=== PATIENT | female | born 1945 | race African-American/Black ===

== ENCOUNTER 2016-11-28 15:30 | Outpatient (CLI) | payer MEDICARE, OTHER ==
[~2016-11-28 15:30] MED LIST: ALBU2.5V11 INH; ALPR-322 PO; ASPI81TA2 PO; CICL6.1H4 NAS; DOCU-25 PO; FLUT10SP INH; HYDR-551 PO; LOSA50TA21 PO; MOME13HF2 HHN; MONT10TA22 PO; MORP15TA71 PO; SENN8.6T6 PO; SERT50TA12 PO; SIMV10TA6 PO
== END 2016-11-28 23:59 | disposition home health service (06) ==
LOC: WOU 15:30
PROVIDERS: ATTEND Surgery
DX: L89.313 Pressure ulcer of right buttock, stage 3 (principal); G82.20 Paraplegia, unspecified; I10 Essential (primary) hypertension; E11.9 Type 2 diabetes mellitus without complications; Z79.899 Other long term (current) drug therapy
CPT/HCPCS: 11042; A6402

== ENCOUNTER 2016-12-05 15:01 | Outpatient (CLI) | payer MEDICARE, OTHER | END 2016-12-05 23:59 | disposition home health service (06) | LOC: WOU 15:01 | PROVIDERS: ATTEND Surgery | DX: L89.313 Pressure ulcer of right buttock, stage 3 (principal); G82.20 Paraplegia, unspecified; I10 Essential (primary) hypertension; E11.9 Type 2 diabetes mellitus without complications; Z79.899 Other long term (current) drug therapy | CPT/HCPCS: 11042; A6402 ==

== ENCOUNTER 2016-12-19 13:40 | Outpatient (CLI) | payer MEDICARE, OTHER | END 2016-12-19 23:59 | disposition home health service (06) | LOC: WOU 13:40 | PROVIDERS: ATTEND Surgery | DX: L89.313 Pressure ulcer of right buttock, stage 3 (principal); G82.20 Paraplegia, unspecified; I10 Essential (primary) hypertension; E11.9 Type 2 diabetes mellitus without complications | CPT/HCPCS: G0463 ==

== ENCOUNTER 2017-01-02 13:50 | Outpatient (CLI) | payer MEDICARE, OTHER | END 2017-01-02 23:59 | disposition home health service (06) | LOC: WOU 13:50 | PROVIDERS: ATTEND Surgery | DX: L89.303 Pressure ulcer of unspecified buttock, stage 3 (principal); G82.20 Paraplegia, unspecified; E11.9 Type 2 diabetes mellitus without complications; I10 Essential (primary) hypertension | CPT/HCPCS: G0463 ==

== ENCOUNTER 2018-02-27 14:30 | Inpatient (IN) | payer MEDICARE, OTHER ==
[~2018-02-27] VITALS: Ht 167.6 cm; Wt 75.7 kg
[~2018-02-27 14:30] MED LIST changes: +ASPI-1169 PO; -ASPI81TA2 PO; +CICL6.1H2 NAS; -CICL6.1H4 NAS; +DOCU-141 PO; -DOCU-25 PO; +MORP15TA60 PO; -MORP15TA71 PO; +SENN-167 PO; -SENN8.6T6 PO
--- NOTE | 2018-02-27 14:35 | NUR ---
BIBRA 837 C/O GENERALIZED WEAKNESS, DIARRHEA, VOMITING. PATIENT IS AWAKE AND ALERT, APEARS IN NO DISTRESS. SKIN IS WARM TO TOUCH AND NON DIAPHORETIC, PT IS AFEBRILE. PATIENT ON SP BLADDER SX 3 DAYS AGO. VSS. WILL CONT TO MONITOR
[2018-02-27] MEDS ORDERED: ONDANSETRON HCL/PF 4 MG/2 ML VIAL ONE (14:41)
[2018-02-27 14:50] LABS: BASOPHILS # (AUTO) 0.2 /CMM (0.0-0.2); BASOPHILS % (AUTO) 2.6 % (0.0-2.0); EOSINOPHILS % (AUTO) 0.2 % (0.0-6.0); HEMATOCRIT 41 % (33-45); HEMOGLOBIN 13.8 g/dL (11.5-14.8); LYMPHOCYTES # (AUTO) 1.5 /CMM (0.8-4.8); LYMPHOCYTES % (AUTO) 19.8 % (20.0-44.0); MEAN CORPUSCULAR HEMOGLOBIN 28 PG (26.0-33.0); MEAN CORPUSCULAR HGB CONC 34 g/dl (31.0-36.0); MEAN CORPUSCULAR VOLUME 83 fL (82-100); MONOCYTES # (AUTO) 0.6 /CMM (0.1-1.30); MONOCYTES % (AUTO) 8.2 % (2.0-12.0); NEUTROPHILS # (AUTO) 5.3 /CMM (1.8-8.9); NEUTROPHILS % (AUTO) 69.2 % (43.0-81.0); PLATELET COUNT (AUTO) 345 /CMM (150-450); RDW COEFFICIENT OF VARIATION 14.9 (11.5-15.0); RED BLOOD CELL COUNT(AUTO) 4.94 MIL/uL (4.0-5.2); WHITE BLOOD COUNT (AUTO) 7.6 K/uL (4.3-11.0)
[2018-02-27] MEDS ORDERED: AZEL137S7 NS (14:51)
[2018-02-27] MEDS ORDERED: METF500T6 PO (14:51)
[2018-02-27] MEDS ORDERED: PANT40TA4 PO (14:51)
[2018-02-27] MEDS ORDERED: BIOT5000 PO (14:51)
[2018-02-27] MEDS ORDERED: MORP15TA PO (14:51)
[2018-02-27] MEDS ORDERED: NITR0.4T48 SL (14:51)
[2018-02-27] MEDS ORDERED: IPRA42SP BNOSTRILS (14:51)
[2018-02-27] MEDS ORDERED: FLUT1BLS IH (14:51)
[2018-02-27] MEDS ORDERED: ALBU8.5H8 IH (14:51)
[2018-02-27] MEDS ORDERED: FLUT16SP BNOSTRILS (14:55)
[2018-02-27] MEDS ORDERED: METR60CR TP (14:59)
[2018-02-27] MEDS ORDERED: SIMV10TA6 PO (14:59)
[2018-02-27] MEDS ORDERED: IV NS 0.9% 1,000 ML BAG IV ONE (15:00)
[2018-02-27] MEDS ORDERED: ONDANSETRON HCL/PF 4 MG/2 ML VIAL IVP ONE (15:00)
[2018-02-27 15:04] LABS: INR 0.98 (0.85-1.15)
[2018-02-27 15:07] LABS: ALANINE AMINOTRANSFERASE 25 U/L (12-78); ALBUMIN 4.1 g/dL (3.4-5.0); ALKALINE PHOSPHATASE 104 U/L (46-116); ASPARTATE AMINOTRANSFERASE 88 U/L (15-37); LIPASE 363 U/L (73-393); TOTAL PROTEIN, SERUM 8.5 g/dL (6.4-8.2)
[2018-02-27 15:08] LABS: SERUM AMMONIA 19 umol/L (11-32)
[2018-02-27 15:10] LABS: TROPONIN I < 0.017 ng/mL (0.00-0.056)
[2018-02-27 15:16] LABS: BILIRUBIN,DIRECT 0.1 mg/dL (0.0-0.2)
[2018-02-27 15:17] LABS: BILIRUBIN,TOTAL 0.6 mg/dL (0.2-1.0)
[2018-02-27 15:26] LABS: CALCIUM, SERUM 10.1 mg/dL (8.5-10.1); POTASSIUM 3.5 mmol/L (3.5-5.1)
[2018-02-27 15:31] LABS: APPEARANCE,URINE Clear (CLEAR); BILIRUBIN,URINE MODERATE (NEGATIVE); BLOOD, URINE Negative Ery/uL (NEGATIVE); COLOR,URINE Yellow (YELLOW); KETONES,URINE 80 (NEGATIVE); LEUKOCYTE ESTERASE ,URINE Negative (NEGATIVE); NITRITE, URINE Negative (NEGATIVE); PH,URINE 5.5 (5.0-8.0); PROTEIN,URINE Negative (NEGATIVE); UGLUCOSE Negative (NEGATIVE); UROBILINOGEN,URINE 0.2 EU/dL (0.2)
[2018-02-27] MEDS ORDERED: IV NS 0.9% 250 ML IV ONE (15:36)
[2018-02-27] MEDS ORDERED: CT SWABBABLE VALVE TRANS SET 1 EA INFUS.SET MC ONE (15:36)
[2018-02-27] MEDS ORDERED: IOHEXOL-300 100 ML VIAL IV ONE (15:36)
[2018-02-27 15:48] LABS: BACTERIA,URINE Rare /HPF (None Seen); RBC,URINE 0-2 /HPF (0-2); SQUAMOUS EPITHELIAL CELL,UR Few /HPF (None Seen); WBC,URINE 0-2 /HPF (0-3)
--- NOTE | 2018-02-27 17:09 | NUR ---
CALLED , , BRUSH OR BROOM CUTTER FOR , PAGED TO CALL BACK.
--- NOTE | 2018-02-27 17:11 | NUR ---
[facility] PAGED, CASIMIRO HELMS METEOROLOGY INSTRUCTOR
--- NOTE | 2018-02-27 17:28 | NUR ---
TELE 311-2 FOR WEAKNESS, CASIMIRO HELMS ADMITTING
[2018-02-27] MEDS ORDERED: MAGNESIUM HYDROXIDE 30 ML UDC PO PRN (18:00)
[2018-02-27] MEDS ORDERED: NITROGLYCERIN 0.4 MG/TAB BOTTLE SL PRN (18:00)
[2018-02-27] MEDS ORDERED: ACETAMINOPHEN 325 MG TABLET PO PRN (18:00)
[2018-02-27] MEDS ORDERED: Z GUARD REMEDY 2 OZ OINT TP PRN (18:00)
[2018-02-27] MEDS ORDERED: MAG HYDROX/AL HYDROX/SIMETH 30 ML UDC PO PRN (18:00)
--- NOTE | 2018-02-27 18:03 | NUR ---
REPORT GIVEN TO MANDI GOETZ FOR [facility] TELE 311-2
--- NOTE | 2018-02-27 18:04 | NUR ---
[facility] [phone].
--- NOTE | 2018-02-27 18:30 | NUR ---
OIL WELL SERVICE OPERATOR HELPER NOTES RECEIVED PATIENT IN BED RESTING NO SOB OR ACUTE DISTRESS NOTED. WILL CONTINUE TO MONITOR.
--- NOTE | 2018-02-27 19:05 | NUR ---
RN OPENING NOTES RECEIVED REPORT FROM MANDI CALDERON. WILL CONTINUE ADMISSION PROCESS. WILL CONTINUE TO ASSESS. PT COMPLAINS OF N/V/D X3 DAYS SINCE BLADDER SX ON FRIDAY. PT NOTED TO HAVE SURGICAL STITCHES ON SACRUM AND BUTTOCKS, DOCUMENTED AND PHOTOS ADDED TO CHART. PT HAS A LEFT AC #20 INTACT AND PATENT. SAFETY PRECAUTIONS IN PLACE BED IN LOWEST LOCKED POSITION, X2 SIDE RAILS UP, CALL LIGHT WITHIN REACH WILL CONTINUE TO MONITOR.
[2018-02-27] MEDS ORDERED: ALBUTEROL FS 2.5 MG/3 ML VIAL.NEB NEB PRN (19:30)
[2018-02-27 20:00] VITALS: BP 123/63
[2018-02-27] MEDS: ONDANSETRON HCL/PF 4 MG/2 ML VIAL IVP PRN (20:49)
[2018-02-27] MEDS: IV NS 0.9% 1,000 ML IV PRN (20:50)
[2018-02-27] MEDS: HYDROCODONE/APAP 5/325MG 1 EACH TABLET PO PRN (20:53)
[2018-02-28] VITALS: BP 122/59
[2018-02-28] MEDS: HYDROCODONE/APAP 5/325MG 1 EACH TABLET PO PRN ×2 (03:42→23:45)
[2018-02-28 04:00] VITALS: BP 153/64
[2018-02-28] MEDS: ONDANSETRON HCL/PF 4 MG/2 ML VIAL IVP PRN ×3 (05:46→23:44)
--- NOTE | 2018-02-28 06:30 | NUR ---
RN CLOSING NOTES PT RESTING IN BED. PT AWAKE AND ALERT. NO COMPLAINTS OF SOB OR DISTRESS. PT HAS A RIGHT AC #20 IV RUNNING NS @75ML/HR. PT TOLERATING FLUIDS WELL. PT TELE MONITORED AT NSR RATE IN THE 70'S. PT WILL HAVE ULTRASOUND OF ABD TODAY. PT HAS BEEN NPO SINCE MIDNIGHT. ALL PT NEEDS MET OVERNIGHT. SAFETY PRECAUTIONS IN PLACE, BED IN LOWEST LOCKED POSITION, X2 SIDE RAILS UP, CALL LIGHT WITH IN REACH. WILL ENDORSE TO DAY SHIFT NURSE FOR CONTINUITY OF CARE.
[2018-02-28 06:43] LABS: BASOPHILS % (AUTO) 0.8 % (0.0-2.0); EOSINOPHILS % (AUTO) 0.6 % (0.0-6.0); HEMATOCRIT 35 % (33-45); HEMOGLOBIN 11.9 g/dL (11.5-14.8); LYMPHOCYTES # (AUTO) 1.5 /CMM (0.8-4.8); LYMPHOCYTES % (AUTO) 24.9 % (20.0-44.0); MEAN CORPUSCULAR HEMOGLOBIN 28 PG (26.0-33.0); MEAN CORPUSCULAR HGB CONC 34 g/dl (31.0-36.0); MEAN CORPUSCULAR VOLUME 84 fL (82-100); MONOCYTES # (AUTO) 0.6 /CMM (0.1-1.30); MONOCYTES % (AUTO) 9.6 % (2.0-12.0); NEUTROPHILS # (AUTO) 3.9 /CMM (1.8-8.9); NEUTROPHILS % (AUTO) 64.1 % (43.0-81.0); PLATELET COUNT (AUTO) 278 /CMM (150-450); RDW COEFFICIENT OF VARIATION 14.9 (11.5-15.0)
[2018-02-28 07:30] LABS: ALBUMIN 3.3 g/dL (3.4-5.0); BILIRUBIN,TOTAL 0.5 mg/dL (0.2-1.0); CALCIUM, SERUM 8.6 mg/dL (8.5-10.1); CREATININE 0.8 mg/dL (0.6-1.3); MAGNESIUM 1.9 mg/dL (1.8-2.4); PHOSPHORUS 3.5 mg/dL (2.5-4.9); POTASSIUM 3.6 mmol/L (3.5-5.1)
--- NOTE | 2018-02-28 07:40 | NUR ---
RN NOTES PATIENT AWAKE ALERT AND VERBALLY RESPONSIVE, CONFUSED, ABLE TO MAKE NEEDS KNOWN, RESPIRATIONS EVEN AND UNLABORED, ABLE TO MAKE NEEDS KNOWN, DENIES ANY PAIN OR DISCOMFORT AT THIS TIME.IV ACCESS PATENT AND INTACT NO REDNESS OR INFILTRATION NOTED. SAFETY MEASURES IN PLACE, REMINDED PATIENT TO CALL WHEN ASSISTANCE IS NEEDED. WILL CONTINUE TO FOLLOW UP WITH PT CARE NEEDS, CALL LIGHT WITH REACH WILL CONTINUE TO MONITOR Addendum: 02/28/18 at 1930 by NAY SÁNCHEZ RN PT NOT CONFUSED
[2018-02-28 08:00] VITALS: BP 137/65
[2018-02-28] MEDS: MORPHINE SULFATE INJ 2 MG/ML DISP.SYRIN IV PRN ×2 (08:39→17:02)
[2018-02-28] MEDS: FLUTICASONE/VILANTEROL 1 EACH BLST.W.DEV IH SCH ×2 (08:40→08:51)
[2018-02-28] MEDS: AZELASTINE NASAL SPRAY 30 ML BOTTLE NS SCH ×2 (08:41→17:04)
[2018-02-28] MEDS: FLUTICASONE PROPIONATE 16 GM BOTTLE NS SCH ×2 (08:41→17:04)
[2018-02-28] MEDS: LOSARTAN POTASSIUM 50 MG TABLET PO SCH (09:42)
[2018-02-28] MEDS: PANTOPRAZOLE 40 MG TABLET.DR PO SCH ×2 (09:43→17:03)
[2018-02-28] MEDS: MONTELUKAST SODIUM (10MG) 10 MG TABLET PO SCH (09:43)
[2018-02-28] MEDS: SERTRALINE HCL 50 MG TABLET PO SCH (09:43)
[2018-02-28] MEDS: IV NS 0.9% 1,000 ML IV PRN (10:59)
[2018-02-28 16:00] VITALS: BP 135/67
--- NOTE | 2018-02-28 17:35 | NUR ---
Met with patient,stated she lives alone in the lower level apartment. She is not ambulatory, she utilized a motorized scooter for mobility. Has 5hrs [facility] caregiver Merissa but patient cannot recall her caregiver phone.Had homehealth many years ago but none recently. She own a commode and shower chair. Patient prefer to go back home upon discharge. She might need transportation assistance if unable to contact caregiver. Addendum: 02/28/18 at 1736 by MARLA MENDOZA RN Amended: Links added.
--- NOTE | 2018-02-28 19:29 | NUR ---
RN NOTES PATIENT ASLEEP EASILY AROUSABLE, ALERT AND VERBALLY RESPONSIVE, ABLE TO MAKE NEEDS KNOWN, RESPIRATIONS EVEN AND UNLABORED, ABLE TO MAKE NEEDS KNOWN, DENIES ANY PAIN OR DISCOMFORT AT THIS TIME.IV ACCESS PATENT AND INTACT NO REDNESS OR INFILTRATION NOTED. SAFETY MEASURES IN PLACE, REMINDED PATIENT TO CALL WHEN ASSISTANCE IS NEEDED. WILL CONTINUE TO FOLLOW UP WITH PT CARE NEEDS, CALL LIGHT WITH REACH WILL CONTINUE TO MONITOR ENDORSED TO NEXT SHIFT FOR CONTINUITY OF CARE
--- NOTE | 2018-02-28 19:41 | NUR ---
MS RN NOTES Report received. Patient received in bed, sleeping, easily aroused. Not in any type of distress. No moaning or facial grimacing noted. Safety measures in place. Will continue to monitor and assess patient.
[2018-02-28 20:00] VITALS: BP 142/69
--- NOTE | 2018-02-28 20:15 | NUR ---
MS RN NOTES GI Eval/Consult done at bedside by Keely (TRAVEL ACCOMMODATION INSPECTOR)
--- NOTE | 2018-02-28 23:45 | NUR ---
MS RN - PRN NOTES Complaints of nausea and pain 7/10 on back . Will reassess for effectiveness
[2018-03-01] MEDS: IV NS 0.9% 1,000 ML IV PRN ×2 (02:03→20:56)
[2018-03-01] MEDS: ONDANSETRON HCL/PF 4 MG/2 ML VIAL IVP PRN ×2 (05:57→16:23)
[2018-03-01] MEDS: HYDROCODONE/APAP 5/325MG 1 EACH TABLET PO PRN ×3 (05:57→16:10)
--- NOTE | 2018-03-01 05:57 | NUR ---
MS RN - PRN NOTES Patient requested for pain meds and for nausea. [place] and Zofran given per patient's request for pain 8/10 back pain
--- NOTE | 2018-03-01 07:33 | NUR ---
MS RN CLOSING NOTES Patient remained in bed, sleeping, easily aroused. Complained of pain and nausea, [place] given along zofran. Not in any type of distress. IV on Right AC 20g: patent and intact with NS 75ml/hr running. On clear liquids. Safety measures in place. Bed in lowest position with call light within reach. Will endorse to oncoming shift nurse.
[2018-03-01 08:00] VITALS: BP 129/71
--- NOTE | 2018-03-01 08:00 | NUR ---
MS RN OPENING NOTE PATIENT IS ALERT AND ORIENTED x4. NO PAIN AT THIS TIME. NO SOB OR DISTRESS NOTED. CALL LIGHT WITHIN REACH AND SAFETY MEASURES IMPLEMENTED. ABLE TO COMMUNICATE NEEDS. IV INTACT AND PATENT NO REDNESS OR SWELLING NOTED WITH IV FLUIDS RUNNING AT THIS TIME. ON CLEAR LIQUID DIET AND TOLERATING WELL. NO NAUSEA OR VOMITING PRESENT AT THIS TIME. WILL CONTINUE TO MONITOR THROUGHOUT SHIFT
[2018-03-01] MEDS: SERTRALINE HCL 50 MG TABLET PO SCH (08:56)
[2018-03-01] MEDS: AZELASTINE NASAL SPRAY 30 ML BOTTLE NS SCH ×2 (08:56→16:10)
[2018-03-01] MEDS: FLUTICASONE PROPIONATE 16 GM BOTTLE NS SCH ×2 (08:56→16:09)
[2018-03-01] MEDS: MONTELUKAST SODIUM (10MG) 10 MG TABLET PO SCH (08:57)
[2018-03-01] MEDS: LOSARTAN POTASSIUM 50 MG TABLET PO SCH (08:57)
[2018-03-01] MEDS: FLUTICASONE/VILANTEROL 1 EACH BLST.W.DEV IH SCH (08:57)
[2018-03-01] MEDS: PANTOPRAZOLE 40 MG TABLET.DR PO SCH ×2 (08:57→16:09)
[2018-03-01 10:14] LABS: ALBUMIN 3.2 g/dL (3.4-5.0); BILIRUBIN,DIRECT 0.1 mg/dL (0.0-0.2); BILIRUBIN,TOTAL 0.5 mg/dL (0.2-1.0); CALCIUM, SERUM 8.8 mg/dL (8.5-10.1); CREATININE 0.8 mg/dL (0.6-1.3); POTASSIUM 3.4 mmol/L (3.5-5.1); TOTAL PROTEIN, SERUM 6.9 g/dL (6.4-8.2)
[2018-03-01 10:16] LABS: WHITE BLOOD COUNT (AUTO) 5.1 K/uL (4.3-11.0)
[2018-03-01 10:17] LABS: BASOPHILS % (AUTO) 0.6 % (0.0-2.0); HEMATOCRIT 36 % (33-45); HEMOGLOBIN 11.5 g/dL (11.5-14.8); LYMPHOCYTES % (AUTO) 26.3 % (20.0-44.0); MEAN CORPUSCULAR HEMOGLOBIN 27 PG (26.0-33.0); MEAN CORPUSCULAR HGB CONC 32 g/dl (31.0-36.0); MEAN CORPUSCULAR VOLUME 85 fL (82-100); NEUTROPHILS % (AUTO) 61.1 % (43.0-81.0); PLATELET COUNT (AUTO) 286 /CMM (150-450); RDW COEFFICIENT OF VARIATION 15.6 (11.5-15.0); RED BLOOD CELL COUNT(AUTO) 4.23 MIL/uL (4.0-5.2)
[2018-03-01] MEDS ORDERED: POTASSIUM CHLORIDE 20 MEQ TAB.PRT.SR PO ONE (10:45)
--- NOTE | 2018-03-01 11:07 | NUR ---
MS RN NOTE PATIENT REQUESTING NORCO 5/325 FOR 02/24 BACK PAIN. NORCO GIVEN WILL REASSESS EFFECTIVENESS OF MEDICATION
[2018-03-01 16:00] VITALS: BP 128/69
[2018-03-01] MEDS: MORPHINE SULFATE INJ 2 MG/ML DISP.SYRIN IV PRN (16:16)
--- NOTE | 2018-03-01 16:16 | NUR ---
MS RN NOTE PATIENT REQUESTING MORPHINE 2MG FOR 8/10 BACK PAIN. MORPHINE 2MG GIVEN AND WILL ASSESS EFFECTIVENESS OF MEDICATION.
--- NOTE | 2018-03-01 18:33 | NUR ---
MS RN CLOSING NOTE PATIENT IS RESTING COMFORTABLY IN BED AT THIS TIME. CALL LIGHT WITHIN REACH AT ALL TIMES. SAFETY MEASURES IMPLEMENTED. ABLE TO COMMUNICATE NEEDS. IV INTACT AND PATENT NO REDNESS OR SWELLING NOTED WITH IV FLUIDS RUNNING AT THIS TIME. ALL DUE MEDICATIONS GIVEN ORDERED AND ALL NURSING CARE NEEDS ATTENDED TO NEEDED. ON ROOM AIR TOLERATING WELL NO SOB OR DISTRESS NOTED. NO PAIN AT THIS TIME. POTASSIUM REPLACED THROUGHOUT SHIFT. STOOL SPECIMEN STILL WAITING TO BE COLLECTED AT THIS TIME. POSSIBLE DISCHARGE IN AM. WILL ENDORSE TO INFORMATION SYSTEMS SUPERVISOR NURSE FOR TROY
--- NOTE | 2018-03-01 19:40 | NUR ---
MS RN NOTES Report received. Patient received in bed, awake and verbally responsive. Alert and oriented x3 with episodes of forgetfulness as reported. Pain managed at the moment. No labored breathing/SOB noted. Not in any type of distress. Safety measures in place. Bed in lowest position with bed alarm on and call light within reach. Will continue to monitor and assess patient
[2018-03-01] MEDS: MORPHINE SULFATE SR 15 MG TABLET.SA PO SCH (21:07)
--- NOTE | 2018-03-01 22:55 | NUR ---
MS RN - PROCEDURE CLARIFICATION ORDER Per KELSIE Riggs - No colonoscopy/EGD tomorrow 03/02/18. Possible discharge in AM if patient is stable
--- NOTE | 2018-03-01 23:42 | NUR ---
RN - NEW ORDER NOTES -Xanax 0.5mg PO PRN Q12H for anxiety/agitation -1st dose give now Addendum: 03/01/18 at 2347 by JULIA JAUREGUI RN New order from Dr. Horacio Corbin
[2018-03-02] MEDS ORDERED: ALPRAZOLAM 0.25 MG TABLET PO PRN
--- NOTE | 2018-03-02 00:32 | NUR ---
MS RN - REFUSAL NOTES Informed patient that order of xanax has been received and will give the first dose NOW. Patient stated, "I don't want to take it right now". Did not get a chance to remove medication from pyxies. Will continue to monitor and assess patient
--- NOTE | 2018-03-02 05:33 | NUR ---
MS RN CLOSING NOTES Patient remained in bed, sleeping, easily aroused. Remained stable with no complaints of pain since MS contin given @2100. No complaints of N/V. No labored breathing noted. Not in any type of distress. IV on right AC 20g: patent and intact with NS @75ml/hr running, tolerating well. Safety measures in place. Bed in lowest position with bed alarm on and call light within reach. Will endorse to oncoming shift nurse
--- NOTE | 2018-03-02 07:52 | NUR ---
MS RN OPENING NOTE PATIENT SLEEPING AT THIS TIME, RESTING COMFORTABLY IN BED. NO FACIAL GRIMACING NOTED FOR PAIN. NO SOB OR DISTRESS NOTED ON ROOM AIR TOLERATING WELL. IV INTACT AND PATENT NO REDNESS OR SWELLING NOTED WITH IV FLUIDS RUNNING AT THIS TIME. WILL CONTINUE TO MONITOR THROUGHOUT SHIFT.
[2018-03-02 08:00] VITALS: BP 138/75
[2018-03-02 08:18] VITALS: BP 138/75
[2018-03-02] MEDS: PANTOPRAZOLE 40 MG TABLET.DR PO SCH (08:18)
[2018-03-02] MEDS: LOSARTAN POTASSIUM 50 MG TABLET PO SCH (08:18)
[2018-03-02] MEDS: FLUTICASONE/VILANTEROL 1 EACH BLST.W.DEV IH SCH (08:19)
[2018-03-02] MEDS: SERTRALINE HCL 50 MG TABLET PO SCH (08:19)
[2018-03-02] MEDS: MONTELUKAST SODIUM (10MG) 10 MG TABLET PO SCH (08:19)
[2018-03-02] MEDS: MORPHINE SULFATE SR 15 MG TABLET.SA PO SCH (08:19)
[2018-03-02] MEDS: AZELASTINE NASAL SPRAY 30 ML BOTTLE NS SCH (08:21)
[2018-03-02] MEDS: FLUTICASONE PROPIONATE 16 GM BOTTLE NS SCH (08:21)
--- NOTE | 2018-03-02 12:47 | NUR ---
WOUND CARE CONSULT WOUND CARE RECEIVED CONSULT FOR SURGICAL WOUNDS SACRUM AND BUTTOCKS. WOUND CARE WILL DEFER CONSULT AND ALL TREATMENT PLANS TO SURGICAL TEAM. DR MADERA NOTIFIED OF CONSULT. PATIENT WITH EVY AT 13, ALL PRESSURE ULCER PREVENTION MEASURES NOTED TO BE IN PLACE. WILL SEE PRN.
--- NOTE | 2018-03-02 14:23 | NUR ---
LATHE SETUP OPERATOR NOTE PATIENT DISCHARGE TO HOME IN STABLE CONDITION. ALL VITALS WITHIN NORMAL LIMITS. ABLE TO COMMUNICATE NEEDS. IV REMOVED, SKIN INTACT. PATIENT REFUSED WOUND PICTURE DOCUMENTATION. ALL BELONGINGS WITH PATIENT AT DISCHARGE AND SENT HOME WITH PATIENT, DAUGHTER AND FAMILY MEMBER. ALL DISCHARGE INSTRUCTIONS GIVEN TO PATIENT AT BEDSIDE AND INSTRUCTIONS WERE REPEATED BACK. FOLLOW UP APPOINTMENT WITH CLINIC TOMORROW 03/03/18 AT 12:15. LEFT VIA PRIVATE CAR WITH DAUGHTER AND FAMILY MEMBER
== END 2018-03-02 14:19 | disposition home or self-care (01) | DRG 391 ==
LOC: ER 14:31 → TELE 17:44 → MED 02-28 09:04
PROVIDERS: ADMIT Nurse Practitioner Acute Care; ATTEND Nurse Practitioner Acute Care
DX: A08.4 Viral intestinal infection, unspecified (principal); N17.0 Acute kidney failure with tubular necrosis; G82.22 Paraplegia, incomplete; E87.1 Hypo-osmolality and hyponatremia; E05.90 Thyrotoxicosis, unspecified without thyrotoxic crisis or storm; R74.0 Nonspecific elevation of levels of transaminase and lactic acid dehydrogenase [LDH]; E87.6 Hypokalemia; I10 Essential (primary) hypertension; E78.5 Hyperlipidemia, unspecified; E11.9 Type 2 diabetes mellitus without complications; M19.90 Unspecified osteoarthritis, unspecified site; M81.0 Age-related osteoporosis without current pathological fracture; R53.81 Other malaise
CPT/HCPCS: 36415; 70450-TC; 71045-TC; 76700-TC; 80048-TC; 80061-TC; 80076-TC; 81000-TC; 82140-TC; 82962-TC; 83605-TC; 83690-TC; 83735-TC; 84100-TC; 84439-TC; 84443-TC; 84484-TC; 85025-TC; 85730-TC; 87040-TC; 87081-TC; 87086-TC; A4606; J2270; J2405; J7030; J7050; Q9967; Z7610

== ENCOUNTER 2018-04-17 22:17 | Inpatient (IN) | payer MEDICARE, OTHER ==
[~2018-04-17] VITALS: Ht 167.6 cm; Wt 71.7 kg
[~2018-04-17 22:17] MED LIST changes: -ALBU2.5V11 INH; +ALBU8.5H8 IH; -ASPI-1169 PO; +AZEL137S7 NS; +BIOT5000 PO; -CICL6.1H2 NAS; -DOCU-141 PO; -FLUT10SP INH; +FLUT16SP BNOSTRILS; +FLUT1BLS IH; +IPRA42SP BNOSTRILS; +METR60CR TP; -MOME13HF2 HHN; +MORP15TA PO; -MORP15TA60 PO; +NITR0.4T48 SL; +PANT40TA4 PO; -SENN-167 PO
--- NOTE | 2018-04-17 22:20 | NUR ---
BIB RA PT AA/OX4 COMPLAINING OF N/V AND FLU SINCE EARLIER TODAY . SKIN PINK, WARM, DRY. NO S/S OF SOB. SPEAKING FULL SENTENCES. NAUSEA PRESENT WITH NO ACTIVE VOMMITING. SBP 180. ALL OTHER VSS. NAD. WILL CONTINUE TO MONITOR.
[2018-04-17] MEDS ORDERED: ONDANSETRON HCL/PF 4 MG/2 ML VIAL ONE (22:39)
[2018-04-17] MEDS ORDERED: ONDANSETRON HCL/PF 4 MG/2 ML VIAL IVP ONE (23:00)
[2018-04-17] MEDS ORDERED: IV NS 0.9% 500 ML BAG IV ONE (23:00)
--- NOTE | 2018-04-17 23:03 | NUR ---
PT BROUGHT TO CT
[2018-04-17 23:07] LABS: BASOPHILS % (AUTO) 0.2 % (0.0-2.0); HEMATOCRIT 40 % (33-45); HEMOGLOBIN 12.9 g/dL (11.5-14.8); LYMPHOCYTES # (AUTO) 0.5 /CMM (0.8-4.8); LYMPHOCYTES % (AUTO) 12.7 % (20.0-44.0); MEAN CORPUSCULAR HEMOGLOBIN 28 PG (26.0-33.0); MEAN CORPUSCULAR HGB CONC 32 g/dl (31.0-36.0); MEAN CORPUSCULAR VOLUME 87 fL (82-100); MONOCYTES % (AUTO) 0.9 % (2.0-12.0); NEUTROPHILS # (AUTO) 3.6 /CMM (1.8-8.9); NEUTROPHILS % (AUTO) 86.2 % (43.0-81.0); PLATELET COUNT (AUTO) 344 /CMM (150-450); RDW COEFFICIENT OF VARIATION 14.8 (11.5-15.0); RED BLOOD CELL COUNT(AUTO) 4.64 MIL/uL (4.0-5.2); WHITE BLOOD COUNT (AUTO) 4.2 K/uL (4.3-11.0)
[2018-04-17 23:11] LABS: CALCIUM, SERUM 9.6 mg/dL (8.5-10.1); CARBON DIOXIDE 29 mmol/L (21-32); CHLORIDE 105 mmol/L (98-107); CREATININE 0.8 mg/dL (0.6-1.3); GLUCOSE 172 mg/dL (74-106); SODIUM SERUM 142 mmol/L (136-145); UREA NITROGEN, BLOOD 7 mg/dL (7-18)
[2018-04-17 23:14] LABS: INR 1.03 (0.87-1.13)
[2018-04-17 23:17] LABS: ALANINE AMINOTRANSFERASE 17 U/L (12-78); ALBUMIN 3.7 g/dL (3.4-5.0); ALKALINE PHOSPHATASE 93 U/L (46-116); ASPARTATE AMINOTRANSFERASE 24 U/L (15-37); BILIRUBIN,DIRECT 0.1 mg/dL (0.0-0.2); BILIRUBIN,TOTAL 0.3 mg/dL (0.2-1.0); LIPASE 126 U/L (73-393)
[2018-04-17 23:19] LABS: TROPONIN I < 0.017 ng/mL (0.00-0.056)
[2018-04-17] MEDS ORDERED: MORPHINE SULFATE INJ 4 MG/ML DISP.SYRIN ONE (23:37)
[2018-04-18] MEDS ORDERED: MORPHINE SULFATE INJ 2 MG/ML DISP.SYRIN IV ONE
[2018-04-18 00:10] LABS: APPEARANCE,URINE SL CLOUDY (CLEAR); BILIRUBIN,URINE NEGATIVE (NEGATIVE); BLOOD, URINE NEGATIVE Ery/uL (NEGATIVE); COLOR,URINE YELLOW (YELLOW); KETONES,URINE TRACE (NEGATIVE); LEUKOCYTE ESTERASE ,URINE NEGATIVE (NEGATIVE); NITRITE, URINE NEGATIVE (NEGATIVE); PROTEIN,URINE NEGATIVE (NEGATIVE); UGLUCOSE NEGATIVE (NEGATIVE); UROBILINOGEN,URINE 0.2 EU/dL (0.2)
[2018-04-18 00:16] LABS: RBC,URINE 0-2 /HPF (0-2)
[2018-04-18 00:17] LABS: BACTERIA,URINE Moderate /HPF (None Seen); SQUAMOUS EPITHELIAL CELL,UR Few /HPF (None Seen); URINE AMORPHOUS PHOSPHATES Moderate /HPF (None Seen); WBC,URINE 0-2 /HPF (0-3)
--- NOTE | 2018-04-18 00:18 | NUR ---
ambulnz eta 1 hr
--- NOTE | 2018-04-18 00:24 | NUR ---
RPatient is resting comfortably in bed with eyes closed. Easily aroused. VSS. SAFETY MEASURES IN PLACE. CALL LIGHT WITHIN REACH
[2018-04-18] MEDS ORDERED: ONDANSETRON HCL/PF 4 MG/2 ML VIAL ONE (00:38)
--- NOTE | 2018-04-18 00:54 | NUR ---
ADMINISTERED 4MG ZOFRAN PER ORDERED BY MD DUE TO PT N/V. LINENS AND PT DIAPER REPLACED AND CLEANED.
[2018-04-18] MEDS ORDERED: ONDANSETRON HCL/PF 4 MG/2 ML VIAL IV ONE ×2 (01:00→02:30)
--- NOTE | 2018-04-18 01:56 | NUR ---
REPORT GIVEN TO [facility]. TRANSP STABLE CONDITION. VSS. NAD. Patient discharged to home in stable condition. Written and verbal after care instructions given. Patient verbalizes understanding of instruction. IV removed. Catheter intact and site benign. Pressure and 4x4 applied to site. No bleeding noted. INSTRUCTED NOT DRIVE OR OPERATE HEAVY MACHINERY
--- NOTE | 2018-04-18 02:45 | NUR ---
PT CONTINUES TO COMPLAIN OF N/V AND WOULD LIKE TO BE ADMITTED TO HOSPITAL. NOTIFIED.
[2018-04-18] MEDS ORDERED: ALBUTEROL SULFATE 8 GM HFA.AER.AD IH PRN (03:00)
[2018-04-18] MEDS ORDERED: ZOLPIDEM TARTRATE 5 MG TABLET PO PRN (03:00)
[2018-04-18] MEDS ORDERED: MAGNESIUM HYDROXIDE 30 ML UDC PO PRN (03:00)
[2018-04-18] MEDS ORDERED: PROMETHAZINE HCL 25 MG TABLET PO PRN (03:00)
[2018-04-18] MEDS ORDERED: NITROGLYCERIN 0.4 MG/TAB BOTTLE SL PRN (03:00)
[2018-04-18] MEDS ORDERED: Z GUARD REMEDY 2 OZ OINT TP PRN (03:00)
[2018-04-18] MEDS ORDERED: ACETAMINOPHEN 325 MG TABLET PO PRN (03:00)
[2018-04-18] MEDS ORDERED: MAG HYDROX/AL HYDROX/SIMETH 30 ML UDC PO PRN (03:00)
--- NOTE | 2018-04-18 03:07 | NUR ---
REPORT GIVEN TO M/S MANDI CALDWELL
[2018-04-18] MEDS ORDERED: MORPHINE SULFATE INJ 4 MG/ML DISP.SYRIN ONE (03:40)
[2018-04-18] MEDS ORDERED: MORPHINE SULFATE INJ 2 MG/ML DISP.SYRIN IV PRN (04:00)
[2018-04-18 04:10] VITALS: BP 149/93
--- NOTE | 2018-04-18 04:10 | NUR ---
MS RN OPENING NOTES: RECEIVED PT FROM ED NURSE, OMERO. PT IS ON ROOM AIR. NO SOB NOTED. PT IS A/OX4. PT IN MILD DISTRESS SHE IS COMPLAINING OF LOWER BACK PAIN 02/24. PT HAS IV ON R AC #20G AND IS PATENT AND INTACT. CURRENTLY H/L. CALL LIGHT WITHIN PT'S REACH. BED KEPT IN LOW, LOCKED POSITION, AND SIDE RAILS X 2UP. WILL CONTINUE TO MONITOR PT.
--- NOTE | 2018-04-18 04:19 | NUR ---
PT TRANSP TO M/S UNIT STABLE CONDITION. NAD. VSS
[2018-04-18 05:03] VITALS: BP 149/93
[2018-04-18] MEDS: HYDROCODONE/APAP 5/325MG 1 EACH TABLET PO PRN ×2 (05:40→12:55)
--- NOTE | 2018-04-18 05:42 | NUR ---
MS RN NOTES: PT COMPLAINING OF 7/10 LOWER BACK PAIN. PT WAS ADMINISTERED NORCO 5. WILL CONTINUE TO MONITOR PT.
--- NOTE | 2018-04-18 06:44 | NUR ---
MS RN CLOSING NOTES: ALL NEEDS WERE ATTENDED AND ANTICIPATED FOR. PT KEPT CLEAN, DRY, AND COMFORTABLE. PT ON ROOM AIR AND TOLERATING WELL. PT KEPT NPO. PT ASLEEP AT THIS TIME. PT ON ROOM AIR AND TOLERATING WELL. ASPIRATION SUCTION SETUP AT BEDSIDE. PT ON SEMI-SIDDIQUI'S POSITION. NO SOB NOTED. NO S/S OF DISTRESS. CALL LIGHT WITHIN PT'S REACH. BED KEPT IN LOW, LOCKED POSITION, AND SIDE RAILS X2UP. IV REMAINS INTACT AND CURRENTLY H/L. WILL ENDORSE TO AM NURSE FOR TROY.
[2018-04-18] MEDS ORDERED: ALBUTEROL FS 2.5 MG/3 ML VIAL.NEB NEB PRN (07:35)
[2018-04-18 08:00] VITALS: BP 156/80
--- NOTE | 2018-04-18 08:00 | NUR ---
MS RN AM NOTES: RECEIVED PT ASLEEP BUT AROUSABLE. ON ROOM AIR AND TOLERATING WELL.WITH C/O MOD ABDOMINAL PAIN.ON MSIR 15 MG PO ROUTINELY GIVEN FOR PAIN MGT.PT ON SEMI-SIDDIQUI'S POSITION. NO SOB NOTED. NO S/S OF DISTRESS. CALL LIGHT WITHIN PT'S REACH. BED KEPT IN LOW, LOCKED POSITION, AND SIDE RAILS X2UP. IV H/L REMAINS INTACT.FOR C DIFF STOOL TO COLLECT.
[2018-04-18] MEDS: AZELASTINE NASAL SPRAY 30 ML BOTTLE NS SCH ×2 (08:45→17:00)
[2018-04-18] MEDS: FLUTICASONE PROPIONATE 16 GM BOTTLE NS SCH ×2 (08:45→17:00)
[2018-04-18] MEDS: FLUTICASONE/VILANTEROL 1 EACH BLST.W.DEV IH SCH (08:45)
[2018-04-18] MEDS: SERTRALINE HCL 50 MG TABLET PO SCH (08:45)
[2018-04-18] MEDS: PANTOPRAZOLE 40 MG TABLET.DR PO SCH ×2 (08:46→17:30)
[2018-04-18] MEDS: LOSARTAN POTASSIUM 50 MG TABLET PO SCH (08:46)
[2018-04-18] MEDS ORDERED: MORPHINE SULFATE IR 15 MG TABLET PO SCH (09:00)
[2018-04-18] MEDS ORDERED: [UNRECOGNIZED DRUG - OTHER] PO SCH (09:00)
[2018-04-18] MEDS ORDERED: HYDROCODONE PO SCH (09:00)
[2018-04-18] MEDS ORDERED: IPRATROPIUM BROMIDE BNOSTRILS SCH (09:00)
[2018-04-18] MEDS ORDERED: ACETAMINOPHEN PO SCH (09:00)
[2018-04-18] MEDS ORDERED: MORPHINE SULFATE IR 15 MG TABLET PO PRN (12:00)
[2018-04-18] MEDS: IV NS 0.9% 1,000 ML IV SCH (12:55)
--- NOTE | 2018-04-18 15:27 | NUR ---
PT DENIES FEELING NAUSEOUS.DENIES EPISODES OF VOMITING AND DIARRHEA SINCE AM.WILL START ON CLEAR LIQUIDS PER PATRICK COTA NP.WILL CONTINUE TO MONITOR
[2018-04-18 16:00] VITALS: BP 128/69
[2018-04-18] MEDS: ALPRAZOLAM 0.5 MG TABLET PO SCH (17:30)
[2018-04-18] MEDS: MONTELUKAST SODIUM (10MG) 10 MG TABLET PO SCH (17:30)
[2018-04-18] MEDS: SIMVASTATIN 10 MG TABLET PO SCH (17:30)
--- NOTE | 2018-04-18 18:12 | NUR ---
PT LYING IN BED DENIES NAUSEA,VOMITING OR DIARRHEA.PRESENTLY ON CLEAR LIQUID DIET AND TOLERATED WELL.WILL CONTINUE TO MONITOR.CALL LIGHT PLACED WITHIN REACH.
--- NOTE | 2018-04-18 19:30 | NUR ---
RN INITIAL NOTES: RECEIVED REPORT FROM CHON RAYMOND. PT IN BED, SLEEPING, APPEARS COMFORTABLE, NO FACIAL GRIMACE NOTED, RESPIRATION EVEN AND UNLABORED, IV ACCESS PATENT AND FLUSHING WELL, NO S/S OF INFILTRATION OR REDNESS NOTED, INFUSING WITH NS AT 75ML/HR. BLE OFFLOADED. SAFETY PRECAUTIONS FOR FALL INITIATED, CALL LIGHT IN REACH, WILL CONTINUE MONITORING PT.
[2018-04-18 20:00] VITALS: BP 130/63
[2018-04-18 20:37] VITALS: BP 130/63
--- NOTE | 2018-04-18 21:00 | NUR ---
rn notes: pt still sleeping, arouses to tactile stimuli, no sob noted, no facial grimace noted. will continue monitoring pt.
[2018-04-19] VITALS: BP 135/66
[2018-04-19] MEDS: IV NS 0.9% 1,000 ML IV SCH ×2 (00:05→15:14)
--- NOTE | 2018-04-19 00:11 | NUR ---
PRN MS IR: PT C/O03/27 ABDOMINAL PAIN, REQUESTING FOR PAIN MEDICINE. PRN MS IR 15MG TAB PO ADMINISTERED AT THIS TIME, VS TAKEN AND RECORDED, OFFERED JONES Mcneal BUT PT REFUSED. WILL CONTINUE TO MONITOR AND REASSESS
[2018-04-19] MEDS: ONDANSETRON HCL/PF 4 MG/2 ML VIAL IVP PRN (02:21)
[2018-04-19] MEDS: HYDROCODONE/APAP 5/325MG 1 EACH TABLET PO PRN ×3 (05:54→23:05)
--- NOTE | 2018-04-19 05:55 | NUR ---
PRN NORCO: PT C/O 02/24 LOWER BACK PAIN REQUESTING FOR PAIN MEDICATION, FROWNING AND FACIAL GRIMACE NOTED, PRN NORCO 5/325 MG TAB ADMINISTERED AT THIS TIME, WILL CONTINUE TO MONITOR AND REASSESS
--- NOTE | 2018-04-19 07:02 | NUR ---
rn closing notes: pt in bd, sleeping, denies any pain or discomfort, no n/v noted throughout the shift, pt tolerating clear liquid diet, iv access remains patent and flushing well, infusing with ns at 75ml/hr, iv site free from redness, no infiltration noted. ble offloaded. no further complaints noted. vs remains stable, needs attended. safety precautions for fall remains engaged, call light in reach, will endorse to day rn for continuity of care.
[2018-04-19 07:19] LABS: BASOPHILS % (AUTO) 0.3 % (0.0-2.0); EOSINOPHILS % (AUTO) 0.1 % (0.0-6.0); HEMATOCRIT 37 % (33-45); HEMOGLOBIN 11.6 g/dL (11.5-14.8); LYMPHOCYTES # (AUTO) 1.4 /CMM (0.8-4.8); LYMPHOCYTES % (AUTO) 22.3 % (20.0-44.0); MEAN CORPUSCULAR HEMOGLOBIN 28 PG (26.0-33.0); MEAN CORPUSCULAR HGB CONC 32 g/dl (31.0-36.0); MEAN CORPUSCULAR VOLUME 88 fL (82-100); MONOCYTES # (AUTO) 0.7 /CMM (0.1-1.30); MONOCYTES % (AUTO) 10.6 % (2.0-12.0); NEUTROPHILS # (AUTO) 4.3 /CMM (1.8-8.9); NEUTROPHILS % (AUTO) 66.7 % (43.0-81.0); PLATELET COUNT (AUTO) 308 /CMM (150-450); RED BLOOD CELL COUNT(AUTO) 4.17 MIL/uL (4.0-5.2); WHITE BLOOD COUNT (AUTO) 6.5 K/uL (4.3-11.0)
--- NOTE | 2018-04-19 07:30 | NUR ---
RN MS NOTES PT IN BED AWAKE, ALERT AND ORIENTED, NO COMPLAINT OF PAIN OR ANY DISCOMFORT, CALL LIGHT WITHIN REACH, IV FLUIDS INFUSING WELL, KEPT CERTIFIED MEDICAL TECHNICIAN ASSISTANT BED.
[2018-04-19 07:43] LABS: CALCIUM, SERUM 8.5 mg/dL (8.5-10.1); CREATININE 0.9 mg/dL (0.6-1.3); MAGNESIUM 2.2 mg/dL (1.8-2.4); PHOSPHORUS 4.2 mg/dL (2.5-4.9); POTASSIUM 3.6 mmol/L (3.5-5.1)
[2018-04-19 08:00] VITALS: BP 120/68
[2018-04-19] MEDS: AZELASTINE NASAL SPRAY 30 ML BOTTLE NS SCH ×2 (08:36→16:24)
[2018-04-19] MEDS: FLUTICASONE PROPIONATE 16 GM BOTTLE NS SCH ×2 (08:36→16:24)
[2018-04-19] MEDS: PANTOPRAZOLE 40 MG TABLET.DR PO SCH (08:36)
[2018-04-19] MEDS: LOSARTAN POTASSIUM 50 MG TABLET PO SCH (08:36)
[2018-04-19] MEDS: FLUTICASONE/VILANTEROL 1 EACH BLST.W.DEV IH SCH (08:36)
[2018-04-19] MEDS: ALPRAZOLAM 0.5 MG TABLET PO SCH ×2 (08:37→16:24)
[2018-04-19] MEDS: SERTRALINE HCL 50 MG TABLET PO SCH (08:37)
--- NOTE | 2018-04-19 13:00 | NUR ---
RN MS NOTES PT IN BED, ASLEEP, EASY TO AROUSE, NO COMPLAINT OF ANY DISCOMFORT AT THIS TIME, ENCOURAGED PO INTAKE, IV FLUIDS INFUSING WELL, KEPT CLEAN AND DRY, NEEDS ATTENDED.
[2018-04-19 16:00] VITALS: BP 160/78
[2018-04-19] MEDS: PANTOPRAZOLE 40 MG VIAL IV SCH (16:24)
[2018-04-19] MEDS: SIMVASTATIN 10 MG TABLET PO SCH (17:15)
[2018-04-19] MEDS: MONTELUKAST SODIUM (10MG) 10 MG TABLET PO SCH (17:15)
[2018-04-19] MEDS ORDERED: METOCLOPRAMIDE HCL 10 MG/2 ML VIAL IV PRN (18:00)
--- NOTE | 2018-04-19 18:07 | NUR ---
RN MS NOTES PT IN BED, RESTING, NO COMPLAINT OF PAIN AT THIS TIME, RESPIRATIONS NORMAL, IV FLUIDS INFUSING WELL, PT SEEN BY KELSIE JENKINS. PT HAS POOR APPETITE AND NO BOWEL MOVEMENT, MD INFORMED, PM MEDS GIVEN, PM CARE RENDERED, TURNED AND REPOSITIONED Q2 HOURS, KEPT PT CLEAN AND DRY, ALL NEEDS ATTENDED.
[2018-04-19 18:45] VITALS: BP 123/78
--- NOTE | 2018-04-19 19:30 | NUR ---
RN INITIAL NOTES: RECEIVED REPORT FROM PHILIPPE RAYMOND. PT IN BED,AWAKE,DENIES ANY PAIN OR DISCOMFORT AT THIS TIME, RESPIRATION EVEN AND UNLABORED, IV ACCESS PATENT AND FLUSHING WELL, NO S/S OF INFILTRATION OR REDNESS NOTED, INFUSING WITH NS AT 75ML/HR. SEEN BY GI/ALICE WITH ORDERS FOR STOOL COLLECTION, HOWEVER PT DOESN'T HAVE ANY BM YET, ON CLEAR LIQUID DIET, POSSIBLE EGD RECOMMENDATION. BLE OFFLOADED. SAFETY PRECAUTIONS FOR FALL INITIATED, CALL LIGHT IN REACH, WILL CONTINUE MONITORING PT.
[2018-04-19 19:55] VITALS: BP 145/69
[2018-04-19 20:00] VITALS: BP 145/69
--- NOTE | 2018-04-19 21:00 | NUR ---
CLARIFICATION OF ORDER: SPOKE TO RN JUAN FERNANDEZ REGARDING POSSIBLE CASES TOMORROW 04/20/18, INFORMED THAT GI CENTER MACHINE SET UP OPERATOR PLACED AN ORDER FOR CONSENT FOR EGD AND NPO P MN FOR THE PT, PER RN JUAN NO SCHEDULED CASE FOR TOMORROW SINCE ITS HOLIDAY. CONTACTED GI CENTER MACHINE SET UP OPERATOR ALICE, RELAYED THE SITUATION, PER CENTER MACHINE SET UP OPERATOR TO PUT THE PT BACK TO CLEAR LIQUID DIET
--- NOTE | 2018-04-19 23:05 | NUR ---
PRN NORCO /: PT C/O 02/24 PAIN ON BACK AND ABDOMEN REQUESTING FOR PAIN MEDICATION, PRN NORCO ADMINISTERED AT THIS TIME, WILL CONTINUE TO MONITOR AND REASSESS
[2018-04-20] MEDS: IV NS 0.9% 1,000 ML IV SCH (03:24)
[2018-04-20 06:17] LABS: BASOPHILS % (AUTO) 0.5 % (0.0-2.0); EOSINOPHILS % (AUTO) 0.5 % (0.0-6.0); HEMATOCRIT 36 % (33-45); HEMOGLOBIN 11.4 g/dL (11.5-14.8); LYMPHOCYTES % (AUTO) 36.6 % (20.0-44.0); MEAN CORPUSCULAR HEMOGLOBIN 28 PG (26.0-33.0); MEAN CORPUSCULAR HGB CONC 32 g/dl (31.0-36.0); MEAN CORPUSCULAR VOLUME 87 fL (82-100); MONOCYTES # (AUTO) 0.6 /CMM (0.1-1.30); MONOCYTES % (AUTO) 10.1 % (2.0-12.0); NEUTROPHILS # (AUTO) 2.9 /CMM (1.8-8.9); NEUTROPHILS % (AUTO) 52.3 % (43.0-81.0); PLATELET COUNT (AUTO) 293 /CMM (150-450); RDW COEFFICIENT OF VARIATION 14.9 (11.5-15.0); RED BLOOD CELL COUNT(AUTO) 4.07 MIL/uL (4.0-5.2); WHITE BLOOD COUNT (AUTO) 5.5 K/uL (4.3-11.0)
[2018-04-20 06:22] LABS: CALCIUM, SERUM 8.5 mg/dL (8.5-10.1); CREATININE 0.6 mg/dL (0.6-1.3); MAGNESIUM 1.9 mg/dL (1.8-2.4); POTASSIUM 3.8 mmol/L (3.5-5.1)
[2018-04-20] MEDS: HYDROCODONE/APAP 5/325MG 1 EACH TABLET PO PRN (06:27)
--- NOTE | 2018-04-20 06:27 | NUR ---
PRN NORCO: PT C/O BACK AND ABDL PAIN REQUESTING FOR PAIN MEDICATION. PRN NORCO 5/325 MG TAB PO ADMINISTERED AT THIS TIME. WILL CONTINUE TO MONITOR AND REASSESS
--- NOTE | 2018-04-20 06:52 | NUR ---
RN CLOSING NOTES: PT SLEEPING COMFORTABLY IN BED, NO FACIAL GRIMACE NOTED, NO SOB NOTED. IV ACCESS REMAINS PATENT AND FLUSHING WELL, INFUSING WITH NS AT 75ML/HR. VS REMAINS STALE, NO EPISODE OF N/V NOTED THROUGHOUT THE SHIFT. EGD CONSENT SECURED ATTACHED TO CHART. NO SCHED YET. NEEDS ATTENDED. SAFETY PRECAUTIONS FOR FALL REMAIN ENGAGED, CALL LIGHT IN REACH, WILL ENDORSE TO DAY RN FOR CONTINUITY OF CARE.
--- NOTE | 2018-04-20 07:09 | NUR ---
MS/RN Patient received Patient received from shift mechanic. Sleeping soundly at this time, appears in no distress or discomfort. Safety measures in place, call light within reach. Will continue to monitor and ensure safety.
[2018-04-20 08:00] VITALS: BP 150/68
[2018-04-20] MEDS: PANTOPRAZOLE 40 MG VIAL IV SCH (08:40)
[2018-04-20] MEDS: ONDANSETRON HCL/PF 4 MG/2 ML VIAL IVP PRN (08:40)
[2018-04-20] MEDS: FLUTICASONE/VILANTEROL 1 EACH BLST.W.DEV IH SCH (08:40)
[2018-04-20 08:41] VITALS: BP 180/80
[2018-04-20] MEDS: FLUTICASONE PROPIONATE 16 GM BOTTLE NS SCH (08:41)
[2018-04-20] MEDS: LOSARTAN POTASSIUM 50 MG TABLET PO SCH (08:41)
[2018-04-20] MEDS: SERTRALINE HCL 50 MG TABLET PO SCH (08:41)
[2018-04-20] MEDS: ALPRAZOLAM 0.5 MG TABLET PO SCH (08:41)
[2018-04-20] MEDS: AZELASTINE NASAL SPRAY 30 ML BOTTLE NS SCH (08:42)
[2018-04-20] MEDS ORDERED: IV NS 0.9% 1,000 ML IV PRN (09:05)
--- NOTE | 2018-04-20 09:37 | NUR ---
MS/RN Labs Morning labs reviewed: All levels within normal limits.
[2018-04-20] MEDS ORDERED: ONDA4TAB5 PO (09:56)
[2018-04-20] MEDS ORDERED: NITR100C6 PO (10:14)
--- NOTE | 2018-04-20 10:30 | NUR ---
MS/RN S/B Ashley Sorensen LIEUTENANT/DEPUTY Seen by LIEUTENANT/DEPUTY - patient to be discharged to home later today with prescription for zofran and antibiotic for UTI.
--- NOTE | 2018-04-20 12:30 | NUR ---
MS/RN S/B GI Seen by GI - patient instructed to follow up with contracted GI doctor upon discharge for possible EGD/colonoscopy.
--- NOTE | 2018-04-20 13:09 | NUR ---
MS/associate doctor Patient discharged to home in stable condition. Provided with copies of exit care and medical record. Instructed to make follow up appointments with PCP and GI doctors at earliest convenience. Prescription given for zofran and macrobid, per patient unable to take macrobid due to increased nausea. Will notifiy KEYBOARD OPERATOR for ne order and will call pharmacy with new prescription. Educated patient on new medications, including possible side effects. Heplock and name bands removed. Time allowed for all questions and concerns to be addressed. All personal belongings accounted for and signed for on belongings list. Escorted to main lobby by REJI.
[2018-04-20] MEDS ORDERED: CEPH-570 PO (13:28)
[2018-04-20] MEDS ORDERED: METOCLOPRAMIDE HCL 10 MG/2 ML VIAL IV PRN (18:00)
== END 2018-04-20 13:20 | disposition home or self-care (01) | DRG 392 ==
LOC: ER 22:18 → MEDSG2 04-18 03:16
PROVIDERS: ADMIT Family Medicine; ATTEND Registered Nurse
DX: A08.4 Viral intestinal infection, unspecified (principal); G82.22 Paraplegia, incomplete; N39.0 Urinary tract infection, site not specified; I10 Essential (primary) hypertension; M19.90 Unspecified osteoarthritis, unspecified site; E78.5 Hyperlipidemia, unspecified; Z90.710 Acquired absence of both cervix and uterus; Z79.899 Other long term (current) drug therapy; E11.9 Type 2 diabetes mellitus without complications; K76.0 Fatty (change of) liver, not elsewhere classified; L30.4 Erythema intertrigo; K83.8 Other specified diseases of biliary tract; B96.89 Other specified bacterial agents as the cause of diseases classified elsewhere
CPT/HCPCS: 36415; 71045-TC; 76700-TC; 80048-TC; 80061-TC; 80074; 80076-TC; 81000-TC; 83690-TC; 83735-TC; 84100-TC; 84484-TC; 85025-TC; 85730-TC; 87045-TC; 87081-TC; 87086-TC; 87177; 87186-TC; 87209; 89055; A4606; C9113; J2270; J2405; J7030; J7040; Z7610

== ENCOUNTER 2019-03-10 12:57 | Outpatient (CLI) | payer MEDICARE, OTHER ==
[~2019-03-10 12:57] MED LIST changes: +CEPH-570 PO; +HYDR-4385 PO; -HYDR-551 PO; -LOSA50TA21 PO; +LOSA50TA39 PO; +ONDA4TAB5 PO
== END 2019-03-10 23:59 | disposition home health service (06) ==
LOC: WOU 12:57
PROVIDERS: ATTEND Specialist
DX: L89.312 Pressure ulcer of right buttock, stage 2 (principal); G82.20 Paraplegia, unspecified; E11.9 Type 2 diabetes mellitus without complications; Z79.84 Long term (current) use of oral hypoglycemic drugs
CPT/HCPCS: G0463

== ENCOUNTER 2020-05-03 11:45 | Outpatient (CLI) | payer MEDICARE, OTHER ==
[~2020-05-03 11:45] MED LIST changes: -SIMV10TA6 PO; +SIMV10TA98 PO
[2020-05-03] MEDS ORDERED: Z GUARD REMEDY 2 OZ OINT TP ONE (12:03)
== END 2020-05-03 23:59 | disposition home health service (06) ==
LOC: WOU 11:45
PROVIDERS: ATTEND Specialist
DX: S31.811A Laceration without foreign body of right buttock, initial encounter (principal); W26.8XXA Contact with other sharp object(s), not elsewhere classified, initial encounter; Y93.89 Activity, other specified; Y92.89 Other specified places as the place of occurrence of the external cause; G82.21 Paraplegia, complete; E11.9 Type 2 diabetes mellitus without complications; Z79.84 Long term (current) use of oral hypoglycemic drugs; Z79.82 Long term (current) use of aspirin
CPT/HCPCS: 82962; G0463

== ENCOUNTER 2020-08-02 13:10 | Outpatient (CLI) | payer MEDICARE, OTHER ==
[~2020-08-02 13:10] MED LIST changes: -PANT40TA4 PO; +PANT40TA49 PO
== END 2020-08-02 23:59 | disposition home health service (06) ==
LOC: WOU 13:10
PROVIDERS: ATTEND Specialist
DX: L89.153 Pressure ulcer of sacral region, stage 3 (principal); G82.21 Paraplegia, complete; E11.9 Type 2 diabetes mellitus without complications; Z79.84 Long term (current) use of oral hypoglycemic drugs; Z79.82 Long term (current) use of aspirin
CPT/HCPCS: 11042; A6209

== ENCOUNTER 2020-08-16 11:04 | Outpatient (CLI) | payer MEDICARE, OTHER | END 2020-08-16 23:59 | disposition home health service (06) | LOC: WOU 11:04 | PROVIDERS: ATTEND Specialist | DX: L89.153 Pressure ulcer of sacral region, stage 3 (principal); G82.21 Paraplegia, complete; E11.9 Type 2 diabetes mellitus without complications; Z79.84 Long term (current) use of oral hypoglycemic drugs; I10 Essential (primary) hypertension; Z79.82 Long term (current) use of aspirin | CPT/HCPCS: 11042 ==

== ENCOUNTER 2020-08-30 11:35 | Outpatient (CLI) | payer MEDICARE, OTHER ==
[2020-08-30] MEDS ORDERED: COLLAGENASE 5 GM TUBE UD TP ONE (12:03)
== END 2020-08-30 23:59 | disposition home health service (06) ==
LOC: WOU 11:35
PROVIDERS: ATTEND Specialist
DX: L89.153 Pressure ulcer of sacral region, stage 3 (principal); G82.21 Paraplegia, complete; E11.9 Type 2 diabetes mellitus without complications; Z79.84 Long term (current) use of oral hypoglycemic drugs; I10 Essential (primary) hypertension; Z79.82 Long term (current) use of aspirin
CPT/HCPCS: 11042

== ENCOUNTER 2020-10-25 11:20 | Outpatient (CLI) | payer MEDICARE, OTHER ==
[~2020-10-25 11:20] MED LIST changes: +SERT-438 PO; -SERT50TA12 PO
[2020-10-25] MEDS ORDERED: COLLAGENASE 5 GM TUBE UD TP ONE (11:57)
== END 2020-10-25 23:59 | disposition home health service (06) ==
LOC: WOU 11:20
PROVIDERS: ATTEND Specialist
DX: L89.153 Pressure ulcer of sacral region, stage 3 (principal); G82.21 Paraplegia, complete; E11.9 Type 2 diabetes mellitus without complications; Z79.84 Long term (current) use of oral hypoglycemic drugs; Z79.82 Long term (current) use of aspirin; I10 Essential (primary) hypertension
CPT/HCPCS: 11042

== ENCOUNTER 2020-11-15 11:40 | Outpatient (CLI) | payer MEDICARE, OTHER ==
[2020-11-15] MEDS ORDERED: COLLAGENASE 5 GM TUBE UD TP ONE (13:30)
== END 2020-11-15 23:59 | disposition home health service (06) ==
LOC: WOU 11:40
PROVIDERS: ATTEND Specialist
DX: L89.153 Pressure ulcer of sacral region, stage 3 (principal); L89.323 Pressure ulcer of left buttock, stage 3; L89.313 Pressure ulcer of right buttock, stage 3; G82.21 Paraplegia, complete; E11.9 Type 2 diabetes mellitus without complications; Z79.84 Long term (current) use of oral hypoglycemic drugs; M19.90 Unspecified osteoarthritis, unspecified site; Z79.82 Long term (current) use of aspirin; I10 Essential (primary) hypertension
CPT/HCPCS: 11042

== ENCOUNTER 2020-11-27 16:43 | Emergency (ER) | payer MEDICARE, OTHER ==
[~2020-11-27] VITALS: Ht 167.6 cm; Wt 81.6 kg
--- NOTE | 2020-11-27 17:10 | NUR ---
PT CAME TO ED VIA MOTORIZED WHEEL CHAIR C/O RLE PAIN X 2 WEEKS STATES GRADUALLY WORSENING SINCE. DENIES ANY RECENT TRAUMA. SWELLING NOTED. AWAITNG MD GOLEDN.
[2020-11-27] MEDS ORDERED: MORPHINE SULFATE INJ 2 MG/ML DISP.SYRIN IV ONE (18:00)
[2020-11-27] MEDS ORDERED: ONDANSETRON HCL/PF - ER 4 MG/2 ML VIAL IV ONE (18:00)
--- NOTE | 2020-11-27 18:02 | NUR ---
DR AGUIRRE AT BEDSIDE FOR EVAL.
[2020-11-27] MEDS ORDERED: MORPHINE SULFATE INJ 2 MG/ML DISP.SYRIN ONE (18:12)
[2020-11-27] MEDS ORDERED: ONDANSETRON HCL/PF 4 MG/2 ML VIAL ONE (18:12)
--- NOTE | 2020-11-27 18:20 | NUR ---
IV LINE STARTED, BLOOD DRAWN AND SENT TO LAB.
[2020-11-27 18:28] LABS: BASOPHILS # (AUTO) 0.1 /CMM (0.0-0.2); BASOPHILS % (AUTO) 1.3 % (0.0-2.0); EOSINOPHILS % (AUTO) 3.7 % (0.0-6.0); HEMATOCRIT 35 % (33-45); HEMOGLOBIN 11.3 g/dL (11.5-14.8); LYMPHOCYTES # (AUTO) 1.9 /CMM (0.8-4.8); LYMPHOCYTES % (AUTO) 33.8 % (20.0-44.0); MEAN CORPUSCULAR HGB CONC 32 g/dl (31.0-36.0); MEAN CORPUSCULAR VOLUME 90 fL (82-100); MONOCYTES # (AUTO) 0.7 /CMM (0.1-1.30); MONOCYTES % (AUTO) 11.3 % (2.0-12.0); NEUTROPHILS # (AUTO) 2.9 /CMM (1.8-8.9); NEUTROPHILS % (AUTO) 49.9 % (43.0-81.0); PLATELET COUNT (AUTO) 324 /CMM (150-450); RED BLOOD CELL COUNT(AUTO) 3.89 MIL/uL (4.0-5.2); WHITE BLOOD COUNT (AUTO) 5.8 K/uL (4.3-11.0)
[2020-11-27 18:49] LABS: CALCIUM, SERUM 9.2 mg/dL (8.5-10.1); CREATININE 0.7 mg/dL (0.6-1.3); POTASSIUM 4.2 mmol/L (3.5-5.1)
--- NOTE | 2020-11-27 19:39 | NUR ---
URINE COLLECTED, CALLED LAB FOR ORE DRESSING ENGINEER
[2020-11-27 20:02] LABS: BILIRUBIN,URINE Negative (NEGATIVE); COLOR,URINE YELLOW (YELLOW); LEUKOCYTE ESTERASE ,URINE Negative (NEGATIVE); NITRITE, URINE Negative (NEGATIVE); PROTEIN,URINE Negative (NEGATIVE); UGLUCOSE Negative (NEGATIVE); UROBILINOGEN,URINE 0.2 EU/dL (0.2)
[2020-11-27] MEDS ORDERED: CEPH250C PO (20:44)
[2020-11-27] MEDS ORDERED: CARI350T PO ×2 (20:45)
--- NOTE | 2020-11-27 21:09 | NUR ---
Patient discharged to home in stable condition. Written and verbal after care instructions given. Patient verbalizes understanding of instruction.IV removed. Catheter intact and site benign. Pressure and 4x4 applied to site. No bleeding noted.Pt transferred to electronic wheelchair in stable condition, picked up by caregiver
[2020-11-27 21:10] VITALS: BP 148/79
== END 2020-11-27 21:10 | disposition home or self-care (01) ==
LOC: ER 16:51
DX: L03.115 Cellulitis of right lower limb (principal); M54.41 Lumbago with sciatica, right side; D64.9 Anemia, unspecified; I10 Essential (primary) hypertension; I25.10 Atherosclerotic heart disease of native coronary artery without angina pectoris; E11.9 Type 2 diabetes mellitus without complications; M19.90 Unspecified osteoarthritis, unspecified site; Z98.890 Other specified postprocedural states; Z79.899 Other long term (current) drug therapy
CPT/HCPCS: 36415; 80048; 81003; 83690; 85025; 93971; 96374; 96375; 99284; J2270; J2405 ×2

== ENCOUNTER 2020-11-29 11:35 | Outpatient (CLI) | payer MEDICARE, OTHER ==
[~2020-11-29 11:35] MED LIST changes: +CARI350T PO; +CEPH250C PO
[2020-11-29] MEDS ORDERED: COLLAGENASE 5 GM TUBE UD TP ONE (12:08)
== END 2020-11-29 23:59 | disposition home health service (06) ==
LOC: WOU 11:35
PROVIDERS: ATTEND Specialist
DX: L89.323 Pressure ulcer of left buttock, stage 3 (principal); L89.313 Pressure ulcer of right buttock, stage 3; E11.9 Type 2 diabetes mellitus without complications; G82.21 Paraplegia, complete; Z79.84 Long term (current) use of oral hypoglycemic drugs; Z79.82 Long term (current) use of aspirin
CPT/HCPCS: 11042

== ENCOUNTER 2020-12-13 11:23 | Outpatient (CLI) | payer MEDICARE, OTHER ==
[~2020-12-13 11:23] MED LIST changes: -ALPR-322 PO; -BIOT5000 PO; -CARI350T PO; -CEPH-570 PO; -IPRA42SP BNOSTRILS
== END 2020-12-13 23:59 | disposition home health service (06) ==
LOC: WOU 11:23
PROVIDERS: ATTEND Specialist
DX: L89.153 Pressure ulcer of sacral region, stage 3 (principal); L89.313 Pressure ulcer of right buttock, stage 3; L89.312 Pressure ulcer of right buttock, stage 2; G82.21 Paraplegia, complete; E11.9 Type 2 diabetes mellitus without complications; Z79.84 Long term (current) use of oral hypoglycemic drugs; Z79.82 Long term (current) use of aspirin
CPT/HCPCS: 11042

== ENCOUNTER 2020-12-20 11:20 | Outpatient (CLI) | payer MEDICARE, OTHER | END 2020-12-20 23:59 | disposition home health service (06) | LOC: WOU 11:20 | PROVIDERS: ATTEND Specialist | DX: L89.153 Pressure ulcer of sacral region, stage 3 (principal); L89.312 Pressure ulcer of right buttock, stage 2; G82.21 Paraplegia, complete; E11.9 Type 2 diabetes mellitus without complications; Z79.84 Long term (current) use of oral hypoglycemic drugs; Z79.82 Long term (current) use of aspirin; I10 Essential (primary) hypertension | CPT/HCPCS: 11042 ==

== ENCOUNTER 2021-01-10 11:30 | Outpatient (CLI) | payer MEDICARE, OTHER | END 2021-01-10 23:59 | disposition home health service (06) | LOC: WOU 11:30 | PROVIDERS: ATTEND Specialist | DX: L89.323 Pressure ulcer of left buttock, stage 3 (principal); L89.153 Pressure ulcer of sacral region, stage 3; G82.21 Paraplegia, complete; E11.9 Type 2 diabetes mellitus without complications; Z79.84 Long term (current) use of oral hypoglycemic drugs; Z79.82 Long term (current) use of aspirin; I10 Essential (primary) hypertension | CPT/HCPCS: A6209; G0463 ==

== ENCOUNTER 2021-01-17 11:45 | Outpatient (CLI) | payer MEDICARE, OTHER | END 2021-01-17 23:59 | disposition home health service (06) | LOC: WOU 11:45 | PROVIDERS: ATTEND Specialist | DX: L89.323 Pressure ulcer of left buttock, stage 3 (principal); L89.152 Pressure ulcer of sacral region, stage 2; G82.21 Paraplegia, complete; E11.9 Type 2 diabetes mellitus without complications; Z79.84 Long term (current) use of oral hypoglycemic drugs; Z79.82 Long term (current) use of aspirin | CPT/HCPCS: 82962; G0463 ==

== ENCOUNTER 2021-01-24 11:45 | Outpatient (CLI) | payer MEDICARE, OTHER | END 2021-01-24 23:59 | disposition home health service (06) | LOC: WOU 11:45 | PROVIDERS: ATTEND Specialist | DX: L89.323 Pressure ulcer of left buttock, stage 3 (principal); L89.150 Pressure ulcer of sacral region, unstageable; G82.21 Paraplegia, complete; E11.9 Type 2 diabetes mellitus without complications; Z79.84 Long term (current) use of oral hypoglycemic drugs; Z79.82 Long term (current) use of aspirin | CPT/HCPCS: G0463 ==

== ENCOUNTER 2021-02-14 11:15 | Outpatient (CLI) | payer MEDICARE, OTHER | END 2021-02-14 23:59 | disposition home health service (06) | LOC: WOU 11:15 | PROVIDERS: ATTEND Specialist | DX: L89.323 Pressure ulcer of left buttock, stage 3 (principal); E11.9 Type 2 diabetes mellitus without complications; Z79.84 Long term (current) use of oral hypoglycemic drugs; G82.21 Paraplegia, complete; Z79.82 Long term (current) use of aspirin | CPT/HCPCS: 11042 ==

== ENCOUNTER 2021-05-02 12:05 | Outpatient (CLI) | payer MEDICARE, OTHER ==
[~2021-05-02 12:05] MED LIST changes: -SERT-438 PO; +SERT50TA12 PO
== END 2021-05-02 23:59 | disposition home health service (06) ==
LOC: WOU 12:05
PROVIDERS: ATTEND Specialist
DX: G82.21 Paraplegia, complete (principal); E11.9 Type 2 diabetes mellitus without complications; I10 Essential (primary) hypertension
CPT/HCPCS: G0463

== ENCOUNTER 2021-07-04 11:40 | Outpatient (CLI) | payer MEDICARE, OTHER | END 2021-07-04 23:59 | disposition home health service (06) | LOC: WOU 11:40 | PROVIDERS: ATTEND Specialist | DX: L89.151 Pressure ulcer of sacral region, stage 1 (principal); G82.20 Paraplegia, unspecified; E11.9 Type 2 diabetes mellitus without complications; Z79.84 Long term (current) use of oral hypoglycemic drugs; Z79.82 Long term (current) use of aspirin | CPT/HCPCS: G0463 ==

== ENCOUNTER 2022-03-20 10:55 | Outpatient (CLI) | payer MEDICARE, OTHER | END 2022-03-20 23:59 | disposition home health service (06) | LOC: WOU 10:55 | PROVIDERS: ATTEND Specialist | DX: L89.313 Pressure ulcer of right buttock, stage 3 (principal); G82.21 Paraplegia, complete; E11.9 Type 2 diabetes mellitus without complications; Z79.84 Long term (current) use of oral hypoglycemic drugs; Z79.82 Long term (current) use of aspirin; I10 Essential (primary) hypertension | CPT/HCPCS: 11042 ==

== ENCOUNTER 2022-05-01 11:00 | Outpatient (CLI) | payer MEDICARE, OTHER | END 2022-05-01 23:59 | disposition home health service (06) | LOC: WOU 11:00 | PROVIDERS: ATTEND Specialist | DX: L89.313 Pressure ulcer of right buttock, stage 3 (principal); G82.21 Paraplegia, complete; E11.9 Type 2 diabetes mellitus without complications; Z79.84 Long term (current) use of oral hypoglycemic drugs; I10 Essential (primary) hypertension; M19.90 Unspecified osteoarthritis, unspecified site; Z79.82 Long term (current) use of aspirin | CPT/HCPCS: 11042; A6209 ==

== ENCOUNTER 2022-05-08 11:30 | Outpatient (CLI) | payer MEDICARE, OTHER | END 2022-05-08 23:59 | disposition home health service (06) | LOC: WOU 11:30 | PROVIDERS: ATTEND Specialist | DX: L89.313 Pressure ulcer of right buttock, stage 3 (principal); E11.9 Type 2 diabetes mellitus without complications; G82.21 Paraplegia, complete; I10 Essential (primary) hypertension; Z79.84 Long term (current) use of oral hypoglycemic drugs; Z79.82 Long term (current) use of aspirin | CPT/HCPCS: 11042; A6209 ×2 ==

== ENCOUNTER 2022-09-25 10:00 | Outpatient (CLI) | payer MEDICARE, OTHER | END 2022-09-25 23:59 | disposition home health service (06) | LOC: WOU 10:00 | PROVIDERS: ATTEND Specialist | DX: L89.313 Pressure ulcer of right buttock, stage 3 (principal); G82.21 Paraplegia, complete; E11.9 Type 2 diabetes mellitus without complications; Z79.82 Long term (current) use of aspirin; I10 Essential (primary) hypertension | CPT/HCPCS: G0463; A6209 ==

== ENCOUNTER 2023-12-08 16:48 | Inpatient (IN) | payer MEDICARE, OTHER ==
[~2023-12-08] VITALS: Ht 160 cm; Wt 74.4 kg
[2023-12-08 19:07] LABS: APPEARANCE,URINE Slightly Cloudy (CLEAR); BILIRUBIN,URINE Negative (NEGATIVE); BLOOD, URINE Small Ery/uL (NEGATIVE); COLOR,URINE YELLOW (YELLOW); KETONES,URINE Trace mg/dL (NEGATIVE); LEUKOCYTE ESTERASE ,URINE Moderate (NEGATIVE); NITRITE, URINE Negative (NEGATIVE); PH,URINE 5.5 (5.0-8.0); PROTEIN,URINE 100 mg/dl (NEGATIVE); UGLUCOSE Negative (NEGATIVE); UROBILINOGEN,URINE 0.2 EU/dL (0.2)
[2023-12-08 19:19] LABS: BASOPHILS % (AUTO) 0.3 % (0.0-2.0); EOSINOPHILS % (AUTO) 0.4 % (0.0-6.0); HEMATOCRIT 36 % (33-45); HEMOGLOBIN 11.6 g/dL (11.5-14.8); LYMPHOCYTES # (AUTO) 1.5 K/uL (0.8-4.8); LYMPHOCYTES % (AUTO) 17.5 % (20.0-44.0); MEAN CORPUSCULAR HEMOGLOBIN 27 PG (26.0-33.0); MEAN CORPUSCULAR HGB CONC 32 g/dl (31.0-36.0); MEAN CORPUSCULAR VOLUME 85 fL (82-100); MONOCYTES # (AUTO) 1.1 K/uL (0.1-1.30); MONOCYTES % (AUTO) 12.6 % (2.0-12.0); NEUTROPHILS # (AUTO) 5.9 K/uL (1.8-8.9); NEUTROPHILS % (AUTO) 69.2 % (43.0-81.0); PLATELET COUNT (AUTO) 275 K/uL (150-450); RED BLOOD CELL COUNT(AUTO) 4.28 MIL/uL (4.0-5.2); RED CELL DISTRIBUTION WIDTH 13.6 % (11.5-15.0); WHITE BLOOD COUNT (AUTO) 8.5 K/uL (4.3-11.0)
[2023-12-08 19:26] LABS: ADD URINE CULTURE YES; BACTERIA,URINE Many /HPF (None Seen); SQUAMOUS EPITHELIAL CELL,UR Few /HPF (None Seen); WBC,URINE 51-80 /HPF (0-3)
[2023-12-08 19:32] LABS: CALCIUM, SERUM 9.1 mg/dL (8.5-10.1); CREATININE 1.2 mg/dL (0.6-1.3); POTASSIUM 3.9 mmol/L (3.5-5.1)
[2023-12-08 19:38] LABS: ALBUMIN 3.2 g/dL (3.4-5.0); BILIRUBIN,DIRECT 0.2 mg/dL (0.0-0.2); BILIRUBIN,TOTAL 0.6 mg/dL (0.2-1.0); TOTAL PROTEIN, SERUM 7.6 g/dL (6.4-8.2)
[2023-12-08 19:41] LABS: LACTIC ACID 0.6 mmol/L (0.4-2.0)
[2023-12-08] MEDS ORDERED: ONDANSETRON HCL/PF 4 MG/2 ML VIAL ONE (20:59)
[2023-12-08] MEDS: ONDANSETRON HCL/PF - ER 4 MG/2 ML VIAL IV ONE (21:02)
[2023-12-08] MEDS ORDERED: CEFTRIAXONE 1GM BAG (ER ONLY) 50 ML IV ONE (21:36)
[2023-12-08] MEDS: CEFTRIAXONE 1GM BAG (ER ONLY) 1 GM/50 ML PIGGYBACK IV ONE (21:39)
[2023-12-08] MEDS: IV NS 0.9% 1,000 ML BAG IV ONE (22:53)
[2023-12-08] MEDS ORDERED: ONDANSETRON HCL/PF 4 MG/2 ML VIAL IVP PRN (23:00)
[2023-12-08] MEDS ORDERED: ALBUTEROL FS 2.5 MG/0.5 ML VIAL.NEB NEB PRN (23:00)
[2023-12-08] MEDS ORDERED: hydrALAZINE HCL IV 20 MG VIAL IV PRN (23:00)
[2023-12-09 00:15] VITALS: BP 144/86; TEMP 100; O2SAT 96
[2023-12-09] MEDS: IV NS 0.9% 1,000 ML IV SCH (00:47)
[2023-12-09] MEDS: MORPHINE SULFATE INJ 2 MG/ML DISP.SYRIN IV PRN (01:14)
[2023-12-09] MEDS: ACETAMINOPHEN 325 MG TABLET PO PRN (01:15)
[2023-12-09] MEDS ORDERED: CEFEPIME 1 GM VIAL ONE (01:37)
[2023-12-09] MEDS ORDERED: IPRATROPIUM/ALBUTEROL INHALER ONE (01:37)
[2023-12-09] MEDS: CEFEPIME 1 GM in IV NS 0.9% 50 ML IV ONE (01:51)
[2023-12-09] MEDS: IPRATROPIUM/ALBUTEROL INHALER IH SCH (01:52)
[2023-12-09 07:39] LABS: ALBUMIN 2.3 g/dL (3.4-5.0); BILIRUBIN,TOTAL 0.4 mg/dL (0.2-1.0); CALCIUM, SERUM 7.8 mg/dL (8.5-10.1); CREATININE 1.1 mg/dL (0.6-1.3); PHOSPHORUS 3.7 mg/dL (2.5-4.9); POTASSIUM 4.2 mmol/L (3.5-5.1); TOTAL PROTEIN, SERUM 6.5 g/dL (6.4-8.2)
[2023-12-09 07:45] LABS: BASOPHILS % (AUTO) 0.3 % (0.0-2.0); EOSINOPHILS % (AUTO) 0.2 % (0.0-6.0); HEMATOCRIT 30 % (33-45); HEMOGLOBIN 9.7 g/dL (11.5-14.8); LYMPHOCYTES # (AUTO) 1.3 K/uL (0.8-4.8); LYMPHOCYTES % (AUTO) 14.9 % (20.0-44.0); MEAN CORPUSCULAR HEMOGLOBIN 28 PG (26.0-33.0); MEAN CORPUSCULAR HGB CONC 33 g/dl (31.0-36.0); MEAN CORPUSCULAR VOLUME 86 fL (82-100); MONOCYTES # (AUTO) 1.1 K/uL (0.1-1.30); MONOCYTES % (AUTO) 13.2 % (2.0-12.0); NEUTROPHILS % (AUTO) 71.4 % (43.0-81.0); PLATELET COUNT (AUTO) 245 K/uL (150-450); RED BLOOD CELL COUNT(AUTO) 3.47 MIL/uL (4.0-5.2); RED CELL DISTRIBUTION WIDTH 13.6 % (11.5-15.0); WHITE BLOOD COUNT (AUTO) 8.4 K/uL (4.3-11.0)
[2023-12-09 08:30] VITALS: BP 134/61; TEMP 98.8; O2SAT 97
[2023-12-09] MEDS: MONTELUKAST SODIUM (10MG) 10 MG TABLET PO SCH (08:39)
[2023-12-09] MEDS: PANTOPRAZOLE 40 MG TABLET.DR PO SCH (08:39)
[2023-12-09] MEDS: AZELASTINE NASAL SPRAY 30 ML BOTTLE NS SCH (08:39)
[2023-12-09] MEDS: SERTRALINE HCL 50 MG TABLET PO SCH (08:39)
[2023-12-09] MEDS: LOSARTAN POTASSIUM 50 MG TABLET PO SCH (08:40)
[2023-12-09] MEDS: MORPHINE SULFATE IR 15 MG TABLET PO SCH (08:41)
[2023-12-09] MEDS: HEPARIN SODIUM, PORCINE 5000 UNITS/1 ML VIAL SQ SCH (08:42)
[2023-12-09] MEDS ORDERED: SERT50TA PO (09:15)
[2023-12-09] MEDS ORDERED: TIOT4MIS2 IH (09:15)
[2023-12-09] MEDS ORDERED: FAMO40TA7 PO (09:15)
[2023-12-09] MEDS ORDERED: ACET-2605 PO (09:15)
[2023-12-09] MEDS ORDERED: CARI350T PO (09:15)
[2023-12-09] MEDS ORDERED: ASCO100T12 PO (09:15)
[2023-12-09] MEDS ORDERED: LACT1CAP57 PO (09:15)
[2023-12-09] MEDS ORDERED: METH500T6 PO (09:15)
[2023-12-09] MEDS ORDERED: FEXO-65 PO (09:15)
[2023-12-09] MEDS ORDERED: BISA-79 PO (09:15)
[2023-12-09] MEDS ORDERED: ZINC50TA65 PO (09:15)
[2023-12-09] MEDS ORDERED: SIMV20TA2 PO (09:15)
[2023-12-09] MEDS ORDERED: MIRT-90 PO (09:15)
[2023-12-09] MEDS ORDERED: CHOL100043 PO (09:15)
[2023-12-09] MEDS: CEFEPIME 2 GM in IV D5W 100 ML IV SCH (14:31)
[2023-12-09 16:00] VITALS: BP 129/64; TEMP 98.4; O2SAT 94
[2023-12-09] MEDS: SIMVASTATIN 10 MG TABLET PO SCH (17:06)
[2023-12-10 07:30] VITALS: BP 124/61; TEMP 98.1; O2SAT 96
[2023-12-10 08:19] LABS: BASOPHILS % (AUTO) 0.5 % (0.0-2.0); EOSINOPHILS # (AUTO) 0.1 K/uL (0.0-0.7); EOSINOPHILS % (AUTO) 2.3 % (0.0-6.0); HEMATOCRIT 29 % (33-45); HEMOGLOBIN 9.6 g/dL (11.5-14.8); LYMPHOCYTES # (AUTO) 1.5 K/uL (0.8-4.8); LYMPHOCYTES % (AUTO) 25.8 % (20.0-44.0); MEAN CORPUSCULAR HEMOGLOBIN 28 PG (26.0-33.0); MEAN CORPUSCULAR HGB CONC 33 g/dl (31.0-36.0); MEAN CORPUSCULAR VOLUME 86 fL (82-100); MONOCYTES % (AUTO) 16.5 % (2.0-12.0); NEUTROPHILS # (AUTO) 3.2 K/uL (1.8-8.9); NEUTROPHILS % (AUTO) 54.9 % (43.0-81.0); PLATELET COUNT (AUTO) 242 K/uL (150-450); RED BLOOD CELL COUNT(AUTO) 3.41 MIL/uL (4.0-5.2); RED CELL DISTRIBUTION WIDTH 13.8 % (11.5-15.0); WHITE BLOOD COUNT (AUTO) 5.9 K/uL (4.3-11.0)
[2023-12-10 09:09] LABS: ALBUMIN 2.4 g/dL (3.4-5.0); BILIRUBIN,TOTAL 0.3 mg/dL (0.2-1.0); CALCIUM, SERUM 8.5 mg/dL (8.5-10.1); MAGNESIUM 2.1 mg/dL (1.8-2.4); PHOSPHORUS 3.4 mg/dL (2.5-4.9); TOTAL PROTEIN, SERUM 6.8 g/dL (6.4-8.2)
[2023-12-10 16:00] VITALS: BP 117/59; TEMP 98.3; O2SAT 96
[2023-12-10 16:01] LABS: EOSINOPHILS % (MANUAL) 3 % (0-4); LYMPHOCYTES % (MANUAL) 30 % (16-48); MONOCYTES % (MANUAL) 17 % (0-11.0); NEUTROPHILS % (MANUAL) 50 (42-76)
[2023-12-10 16:02] LABS: OVALOCYTES 1+; PLATELET ESTIMATE ADEQUATE
[2023-12-10] MEDS: SENNOSIDES/DOCUSATE SODIUM 1 TAB TABLET PO SCH (21:34)
[2023-12-11] MEDS: MIRTAZAPINE 15 MG TABLET PO PRN (00:51)
[2023-12-11 07:00] VITALS: BP 152/68; TEMP 98.2; O2SAT 97
[2023-12-11] MEDS ORDERED: BISACODYL (5 MG) 5 MG TABLET.DR PO PRN (09:00)
[2023-12-11] MEDS ORDERED: CEPH500C2 PO (11:25)
[2023-12-11 16:00] VITALS: BP 157/63; TEMP 98.4; O2SAT 94
== END 2023-12-11 17:45 | disposition home health service (06) | DRG 689 ==
LOC: ER 17:18 → MED 23:44
PROVIDERS: ADMIT Internal Medicine
DX: N39.0 Urinary tract infection, site not specified (principal); R53.2 Functional quadriplegia; E87.20 Acidosis, unspecified; Z66 Do not resuscitate; I10 Essential (primary) hypertension; M19.90 Unspecified osteoarthritis, unspecified site; Z87.440 Personal history of urinary (tract) infections; E11.9 Type 2 diabetes mellitus without complications; E78.5 Hyperlipidemia, unspecified; Z79.51 Long term (current) use of inhaled steroids; Z98.890 Other specified postprocedural states; Z96.0 Presence of urogenital implants; Z98.891 History of uterine scar from previous surgery; J44.9 Chronic obstructive pulmonary disease, unspecified; F32.A Depression, unspecified; M89.8X9 Other specified disorders of bone, unspecified site; K82.8 Other specified diseases of gallbladder; D64.9 Anemia, unspecified
CPT/HCPCS: 36415; 80048-TC; 80053-TC; 80076-TC; 81001; 83605-TC; 83690-TC; 83735-TC; 84100-TC; 85025-TC; 87040-TC; 87086-TC; 97110-TC; 97530-TC; G0378; J0692; J0696; J1644; J2270; J2405; J7030; J7050; J7060

== ENCOUNTER 2024-07-19 12:28 | Emergency (ER) | payer MEDICARE, OTHER ==
[~2024-07-19] VITALS: Ht 170.2 cm; Wt 67.1 kg
[~2024-07-19 12:28] MED LIST changes: +ACET-2605 PO; +ASCO100T12 PO; +BISA-79 PO; +CARI350T PO; -CEPH250C PO; +CEPH500C2 PO; +CHOL100043 PO; +FAMO40TA7 PO; +FEXO-65 PO; +LACT1CAP57 PO; +METH500T6 PO; -METR60CR TP; +MIRT-90 PO; -NITR0.4T48 SL; -ONDA4TAB5 PO; -PANT40TA49 PO; +SERT50TA PO; -SERT50TA12 PO; -SIMV10TA98 PO; +SIMV20TA2 PO; +TIOT4MIS2 IH; +ZINC50TA65 PO
[2024-07-19 18:12] VITALS: BP 140/87; TEMP 98.3; O2SAT 98
== END 2024-07-19 18:00 | disposition home or self-care (01) ==
LOC: ER 12:31
DX: M25.531 Pain in right wrist (principal); M79.601 Pain in right arm; S63.591A Other specified sprain of right wrist, initial encounter; E11.9 Type 2 diabetes mellitus without complications; E78.5 Hyperlipidemia, unspecified; G82.20 Paraplegia, unspecified; I10 Essential (primary) hypertension; M19.041 Primary osteoarthritis, right hand; Z79.51 Long term (current) use of inhaled steroids; Z79.899 Other long term (current) drug therapy; Z90.710 Acquired absence of both cervix and uterus; Z60.2 Problems related to living alone; W05.0XXA Fall from non-moving wheelchair, initial encounter; Y93.89 Activity, other specified; Y92.89 Other specified places as the place of occurrence of the external cause; Y99.8 Other external cause status
CPT/HCPCS: 73110; 73130-TC

== ENCOUNTER 2024-08-09 11:01 | Emergency (ER) | payer MEDICARE, OTHER ==
[~2024-08-09] VITALS: Ht 172.7 cm; Wt 68.0 kg
[2024-08-09] MEDS ORDERED: ACETAMINOPHEN ES 500 MG TABLET ONE (11:22)
[2024-08-09] MEDS ORDERED: ACETAMINOPHEN 160 MG/5 ML ONE (11:28)
[2024-08-09] MEDS ORDERED: ACETAMINOPHEN 650 MG/20.3 ML UDC ONE (11:29)
[2024-08-09] MEDS: ACETAMINOPHEN ES 500 MG TABLET PO ONE (11:35)
[2024-08-09 15:54] VITALS: BP 147/71; TEMP 98.4; O2SAT 97
== END 2024-08-09 15:55 | disposition home health service (06) ==
LOC: ER 11:33
DX: S40.011A Contusion of right shoulder, initial encounter (principal); S80.01XA Contusion of right knee, initial encounter; S80.02XA Contusion of left knee, initial encounter; E11.9 Type 2 diabetes mellitus without complications; E78.5 Hyperlipidemia, unspecified; G82.20 Paraplegia, unspecified; I10 Essential (primary) hypertension; M19.90 Unspecified osteoarthritis, unspecified site; Z79.51 Long term (current) use of inhaled steroids; Z79.899 Other long term (current) drug therapy; Z90.710 Acquired absence of both cervix and uterus; W07.XXXA Fall from chair, initial encounter; Y93.89 Activity, other specified; Y92.89 Other specified places as the place of occurrence of the external cause; Y99.8 Other external cause status
CPT/HCPCS: 71045-TC; 73030-TC; 73564-TC

== ENCOUNTER 2025-02-09 12:41 | Inpatient (IN) | payer MEDICARE, OTHER ==
[~2025-02-09] VITALS: Ht 172.7 cm; Wt 68.9 kg
[2025-02-09 13:27] LABS: BASOPHILS % (AUTO) 0.4 % (0.0-2.0); EOSINOPHILS # (AUTO) 0.1 K/uL (0.0-0.7); EOSINOPHILS % (AUTO) 1.4 % (0.0-6.0); HEMATOCRIT 39 % (33-45); HEMOGLOBIN 12.9 g/dL (11.5-14.8); MEAN CORPUSCULAR HEMOGLOBIN 28 PG (26.0-33.0); MEAN CORPUSCULAR HGB CONC 33 g/dl (31.0-36.0); MEAN CORPUSCULAR VOLUME 84 fL (82-100); MONOCYTES # (AUTO) 0.6 K/uL (0.1-1.30); MONOCYTES % (AUTO) 8.7 % (2.0-12.0); NEUTROPHILS # (AUTO) 4.2 K/uL (1.8-8.9); NEUTROPHILS % (AUTO) 60.5 % (43.0-81.0); PLATELET COUNT (AUTO) 316 K/uL (150-450); RED BLOOD CELL COUNT(AUTO) 4.67 MIL/uL (4.0-5.2); RED CELL DISTRIBUTION WIDTH 15.2 % (11.5-15.0)
[2025-02-09 13:35] LABS: CALCIUM, SERUM 9.5 mg/dL (8.5-10.1); CARBON DIOXIDE 27 mmol/L (21-32); CHLORIDE 108 mmol/L (98-107); GLUCOSE 130 mg/dL (74-106); POTASSIUM 4.1 mmol/L (3.5-5.1); SODIUM SERUM 143 mmol/L (136-145); UREA NITROGEN, BLOOD 23 mg/dL (7-18)
[2025-02-09] MEDS ORDERED: ASPIRIN 81 MG TAB.CHEW ONE (14:34)
[2025-02-09] MEDS: ASPIRIN 81 MG TAB.CHEW PO ONE (14:39)
[2025-02-09] MEDS ORDERED: IPRA12.9 IH (14:54)
[2025-02-09] MEDS ORDERED: KETOROLAC TROMETHAMINE 15 MG/ML VIAL ONE (15:31)
[2025-02-09] MEDS: IV NS 0.9% 1,000 ML BAG IV ONE (15:39)
[2025-02-09] MEDS: KETOROLAC TROMETHAMINE 15 MG/ML VIAL IV ONE (15:39)
[2025-02-09] MEDS ORDERED: ONDANSETRON HCL/PF 4 MG/2 ML VIAL IVP PRN (16:30)
[2025-02-09] MEDS ORDERED: Z GUARD REMEDY 4 OZ OINT TP PRN (16:30)
[2025-02-09] MEDS ORDERED: HYDROCODONE/APAP 5/325MG TABLET PO PRN (16:30)
[2025-02-09] MEDS ORDERED: HYDROCODONE/APAP 7.5/325MG 1 EACH TABLET PO SCH (17:00)
[2025-02-09] MEDS ORDERED: METHOCARBAMOL (500MG) 500 MG TABLET PO PRN (17:00)
[2025-02-09] MEDS: MIRTAZAPINE 15 MG TABLET PO SCH (17:07)
[2025-02-09] MEDS: IV 1/2NS 1000 ML 1,000 ML IV ONE (17:07)
[2025-02-09] MEDS: AZITHROMYCIN 250 MG TABLET PO ONE (17:08)
[2025-02-09] MEDS: ENOXAPARIN SODIUM 40 MG/0.4 ML DISP.SYRIN SQ SCH (17:08)
[2025-02-09 18:00] VITALS: BP 135/74; TEMP 98.4; O2SAT 98
[2025-02-09] MEDS ORDERED: DEXTROSE 50%-WATER 50 ML DISP.SYRIN IV PRN (18:00)
[2025-02-09] MEDS: METOPROLOL TARTRATE 50 MG TABLET PO SCH (18:17)
[2025-02-09] MEDS: BLOOD SUGAR DIAGNOSTIC 1 EACH STRIP IN SCH (18:18)
[2025-02-09] MEDS: ALBUTEROL FS 2.5 MG/3 ML VIAL.NEB NEB SCH (19:55)
[2025-02-09] MEDS: IPRATROPIUM NEB FS 0.5 MG/2.5 ML AMPUL.NEB NEB SCH (19:55)
[2025-02-09 20:00] VITALS: BP 129/69; TEMP 97.7; O2SAT 98
[2025-02-09] MEDS: ATORVASTATIN 40 MG TABLET PO SCH (22:26)
[2025-02-09] MEDS: TRAZODONE 50 MG TABLET PO ONE (23:44)
[2025-02-10] VITALS (10 sets, daily range): BP systolic 104–143; BP diastolic 56–77; TEMP 97.2–98.1; O2SAT 93–100
[2025-02-10] MEDS: INSULIN REGULAR, HUMAN 100 UNIT/ML 3 ML VIAL SQ PRN (00:05)
[2025-02-10] MEDS: NITROGLYCERIN 0.4 MG/TAB BOTTLE SL PRN (06:22)
[2025-02-10 06:58] LABS: BASOPHILS % (AUTO) 0.7 % (0.0-2.0); EOSINOPHILS # (AUTO) 0.1 K/uL (0.0-0.7); EOSINOPHILS % (AUTO) 2.7 % (0.0-6.0); HEMATOCRIT 38 % (33-45); HEMOGLOBIN 12.3 g/dL (11.5-14.8); LYMPHOCYTES # (AUTO) 2.3 K/uL (0.8-4.8); LYMPHOCYTES % (AUTO) 42.5 % (20.0-44.0); MEAN CORPUSCULAR HEMOGLOBIN 27 PG (26.0-33.0); MEAN CORPUSCULAR HGB CONC 32 g/dl (31.0-36.0); MEAN CORPUSCULAR VOLUME 84 fL (82-100); MONOCYTES # (AUTO) 0.6 K/uL (0.1-1.30); MONOCYTES % (AUTO) 10.5 % (2.0-12.0); NEUTROPHILS # (AUTO) 2.3 K/uL (1.8-8.9); NEUTROPHILS % (AUTO) 43.6 % (43.0-81.0); PLATELET COUNT (AUTO) 296 K/uL (150-450); RED BLOOD CELL COUNT(AUTO) 4.49 MIL/uL (4.0-5.2); RED CELL DISTRIBUTION WIDTH 15.5 % (11.5-15.0); WHITE BLOOD COUNT (AUTO) 5.3 K/uL (4.3-11.0)
[2025-02-10 07:43] LABS: CALCIUM, SERUM 8.8 mg/dL (8.5-10.1); CREATININE 0.8 mg/dL (0.6-1.3); MAGNESIUM 2.2 mg/dL (1.8-2.4); PHOSPHORUS 4.3 mg/dL (2.5-4.9); POTASSIUM 3.7 mmol/L (3.5-5.1)
[2025-02-10] MEDS: PANTOPRAZOLE 40 MG TABLET.DR PO SCH (08:11)
[2025-02-10] MEDS: ASPIRIN 81 MG TAB.CHEW PO SCH (08:12)
[2025-02-10] MEDS: LOSARTAN POTASSIUM 50 MG TABLET PO SCH (08:12)
[2025-02-10] MEDS: MONTELUKAST SODIUM (10MG) 10 MG TABLET PO SCH (08:12)
[2025-02-10] MEDS: ENOXAPARIN SODIUM 60 MG/0.6 ML DISP.SYRIN SQ SCH (08:14)
[2025-02-10] MEDS: SERTRALINE HCL 50 MG TABLET PO SCH (08:38)
[2025-02-10] MEDS ORDERED: FLUTICASONE/VILANTEROL 1 EACH BLST.W.DEV IH SCH (09:00)
[2025-02-10] MEDS: methylPREDNISolone SOD SUCC 125 MG/2ML VIAL IV SCH (10:25)
[2025-02-10] MEDS: GUAIFENESIN/D-METHORPHAN HB 5 ML UDC PO PRN (12:55)
[2025-02-10] MEDS ORDERED: IOHEXOL-350 100 ML VIAL IV ONE (14:16)
[2025-02-10] MEDS ORDERED: IV NS 0.9% 250 ML IV ONE (14:17)
[2025-02-10] MEDS: METOPROLOL TARTRATE INJ 5 MG/5 ML AMPUL IVP PRN (14:35)
[2025-02-10] MEDS ORDERED: NITROGLYCERIN 0.4 MG/TAB BOTTLE ONE (14:39)
[2025-02-10] MEDS ORDERED: METOPROLOL TARTRATE INJ 5 MG/5 ML AMPUL ONE (14:39)
[2025-02-10] MEDS: NITROGLYCERIN 0.4 MG/TAB BOTTLE SL ONE (14:40)
[2025-02-10] MEDS ORDERED: METOPROLOL TARTRATE INJ 5 MG/5 ML AMPUL IVP ONE (15:00)
[2025-02-10] MEDS: ACETAMINOPHEN 325 MG TABLET PO PRN (15:29)
[2025-02-10] MEDS: AZITHROMYCIN 250 MG TABLET PO SCH (16:06)
[2025-02-10] MEDS: MIRTAZAPINE 15 MG TABLET PO SCH (22:24)
[2025-02-11] VITALS (7 sets, daily range): BP systolic 114–147; BP diastolic 58–73; TEMP 97.9–98.5; O2SAT 95–99
[2025-02-11 07:04] LABS: BASOPHILS % (AUTO) 0.1 % (0.0-2.0); HEMATOCRIT 41 % (33-45); HEMOGLOBIN 12.9 g/dL (11.5-14.8); LYMPHOCYTES # (AUTO) 0.8 K/uL (0.8-4.8); MEAN CORPUSCULAR HEMOGLOBIN 27 PG (26.0-33.0); MEAN CORPUSCULAR HGB CONC 32 g/dl (31.0-36.0); MEAN CORPUSCULAR VOLUME 86 fL (82-100); MONOCYTES # (AUTO) 0.4 K/uL (0.1-1.30); MONOCYTES % (AUTO) 4.6 % (2.0-12.0); NEUTROPHILS % (AUTO) 85.3 % (43.0-81.0); PLATELET COUNT (AUTO) 301 K/uL (150-450); RED BLOOD CELL COUNT(AUTO) 4.74 MIL/uL (4.0-5.2); RED CELL DISTRIBUTION WIDTH 15.5 % (11.5-15.0); WHITE BLOOD COUNT (AUTO) 8.2 K/uL (4.3-11.0)
[2025-02-11 07:39] LABS: CALCIUM, SERUM 9.3 mg/dL (8.5-10.1); MAGNESIUM 2.3 mg/dL (1.8-2.4); PHOSPHORUS 2.7 mg/dL (2.5-4.9); POTASSIUM 3.8 mmol/L (3.5-5.1)
[2025-02-11] MEDS: APIXABAN 5 MG TABLET PO SCH (09:41)
[2025-02-11] MEDS: METOPROLOL SUCCINATE 50 MG TAB.SR.24H PO SCH (09:42)
[2025-02-11] MEDS ORDERED: METH4TAB3 PO (09:49)
[2025-02-11] MEDS ORDERED: APIX5TAB PO (09:49)
[2025-02-11] MEDS ORDERED: BENZ-13 PO (09:49)
[2025-02-11] MEDS ORDERED: ASPI-1420 PO (09:49)
[2025-02-11] MEDS ORDERED: ALBU8.5H8 INH (09:49)
[2025-02-11] MEDS ORDERED: AZIT250T13 PO (09:49)
[2025-02-11] MEDS: diphenhydrAMINE HCL 50 MG/ML VIAL IV ONE (10:00)
[2025-02-11] MEDS: METOCLOPRAMIDE HCL 10 MG/2 ML VIAL IV ONE (10:00)
== END 2025-02-11 18:09 | disposition home health service (06) | DRG 865 ==
LOC: ER 12:45 → TELE1 15:11 → MEDSG1 02-11 09:54
PROVIDERS: ADMIT Nurse Practitioner Family; ATTEND Nurse Practitioner Family
DX: B34.9 Viral infection, unspecified (principal); R53.2 Functional quadriplegia; J45.901 Unspecified asthma with (acute) exacerbation; M94.0 Chondrocostal junction syndrome [Tietze]; J06.9 Acute upper respiratory infection, unspecified; I10 Essential (primary) hypertension; E78.5 Hyperlipidemia, unspecified; I25.10 Atherosclerotic heart disease of native coronary artery without angina pectoris; M19.90 Unspecified osteoarthritis, unspecified site; Z98.890 Other specified postprocedural states; Z98.891 History of uterine scar from previous surgery; Z79.51 Long term (current) use of inhaled steroids; Z79.899 Other long term (current) drug therapy; E11.9 Type 2 diabetes mellitus without complications; F32.A Depression, unspecified; R79.89 Other specified abnormal findings of blood chemistry
CPT/HCPCS: 36415; 70220-TC; 71045-TC; 75574; 80048-TC; 80061-TC; 82962-TC; 83735-TC; 84100-TC; 84484-TC; 85025-TC; 85378-TC; 93307-TC; 93970-TC; 94799-TC; A4223; G0378; J1650; J1815; J1885; J2919; J3490; J7030; J7050; J7120; Q9967